=== PATIENT | female | born 1990 | race Caucasian/White ===

== ENCOUNTER 2020-10-06 10:01 | Outpatient (REF) | payer OTHER, SELFPAY ==
--- NOTE | 2020-10-11 16:08 | MHC.AU.P13 ---
Adult Audiological Evaluation Date of Visit: 10/06/20 Reason for Appointment: Long-standing history of mixed hearing loss. History of middle ear surgeries. Patient currently has a PE tube in her right ear. She arrives to determine if there has been a change in hearing. Previous Hearing Test Results: On 11/07/2018 [facility]- Right: Moderately-severe rising to normal and sloping to moderately-severe mixed hearing loss Left: Moderate rising to normal and sloping to moderately-severe mixed hearing loss Ear History: Recent Ear Drainage: Right Ear Ear Infections in Childhood: Both Ears Hearing Instrument History- Right Ear: News Department Intern: Oticon Model: Starr mini BTE Serial Number: [id number] Battery Size: 312 Dispensed By: [facility] Date of Fittin12/17/2014 Hearing Instrument History- Left Ear: News Department Intern: Oticon Model: Starr mini BTE Serial Number: [id number] Battery Size: 312 Dispensed By: [facility] Date of Fittin12/17/2014 Otoscopy: Right Ear: PE tube visualized and appears to be in-tact Left Ear: Scarring on tympanic membrane Tympanometry: Right Ear: Patent PE Tube Left Ear: Negative Middle Ear Pressure (Type C) Hearing Evaluation: Transducer(s) Used: Insert Earphones, Bone Conduction Method: Conventional Audiometry Stimuli Used: Pure Tones Right Ear: Description of Hearing: Moderately-severe rising to normal and sloping to moderately-severe mixed hearing loss Left Ear: Description of Hearing: Moderately-severe rising to normal and sloping to moderately-severe mixed hearing loss Speech Recognition Threshold (SRT): Method Used: Recorded Lists Stimuli Used: Spondee Words Right Ear: 20 dBHL Left Ear: 35 dBHL Word Discrimination: Method: Recorded Lists Word Lists Used: NU-6 Right Ear: 96% at 65 dBHL Left Ear: 92% at 70 dBHL Most Comfortable Level (MCL): Right Ear: 65 dBHL Left Ear: 70 dBHL Comparison: Compared to the most recent evaluation: Hearing is stable. Recommendations: Audiological re-evaluation in one year. Patient is interested in a new pair of hearing aids. Discussed her current needs, which include Bluetooth. She also uses an amplified stethoscope that she currently plugs into the aux port of her StreamerPro. Many of the new streamers do not have aux ports. I will do some research and call audiology at [facility], [facility], and [facility] to discuss which options may work for her. Patient plans to also do more research into the various models we discussed. A hearing aid follow-up was scheduled to select which hearing aids she would like to proceed with. Diagnosis: Primary Diagnosis: H90.6 Mixed Hearing Loss, Bilateral Services Performed: Services Performed: Comprehensive Audiological Evaluation (CPT 95328) Tympanometry (CPT 06358) Signature: Provider: Carmel Bennett, CCC-A
== END 2020-10-06 10:02 | disposition home or self-care (01) ==
LOC: HO.SH 10:01
PROVIDERS: PCP Internal Medicine; Referring Provider Internal Medicine; Visit Provider Internal Medicine
DX: H90.6 Mixed conductive and sensorineural hearing loss, bilateral (principal)
CPT/HCPCS: 92557; 92567

== ENCOUNTER 2020-10-20 15:03 | Outpatient (REF) | payer SELFPAY ==
--- NOTE | 2020-10-21 11:03 | MHC.AU.HAS ---
Date of Visit: 10/21/20 Hearing Aid Evaluation Historical Information: Description of Hearing: Moderately-severe rising to normal and sloping to moderately-severe mixed hearing loss, worse in the left ear. Current personal amplification information, if applicable:: Oticon [place] mini BTE, obtained 12/17/2014 Summary: Patient arrived to discuss new hearing aid options. Patient currently has an Oticon Streamer Pro 1.3, which she relies on. She uses it for understanding on the phone, as well as to plug her ThinkLabs stethoscope into for work. The streamer is now considered obsolete by Oticon, and cannot be repaired or replaced. The streamer has started to have intermittent issues, and she would like to consider a new pair of hearing aids with Bluetooth compatibility so she would not have to rely on a streamer as much. She would, however, still like to consider hearing aids that do have streamers with a 3.5 mm shala, in case it is needed down the line. Patient has an iPhone. Options were researched. Oticon has compatibility with iPhones; however, they do not have many options for streamers that still have the 3.5 mm shala. The EduMic has a 3.5 mm shala, but it is meant primarily for school remote microphone use. Phon[employer]'s Ze Select, Ze Pen, and Ze Clip-on Yoni have a 3.5 mm shala, but are a bit pricey. Phonak is compatible with iPhone or Android. Contacted Phonak to ask about ThinkLabs compatibility. They said there is a Bluetooth adapter that can help the hearing aids connect to the stethoscope without a streamer. They have been performing validation testing. They said they have not officially published the results, so they have not released any directions to set up the Bluetooth adapter; instead, they recommend calling Audiology to help walk you through setting it up at the fitting. Adelso is compatible with iPhone and Android. Their Table Microphone and Remote Microphone+ have 3.5 mm jacks. Patient was interested in the Table Microphone, as she felt it may also help in meetings. After considering all options, we will try a pair of Adelso Ch[place] AI 2400 BTEs [facility]. She will hold off on the Table Microphone for now, as she would like to see how the hearing aids work on their own, and with the Bluetooth adapter for her stethoscope. Impressions taken for new molds without incident. Hearing Aid Prescription: Based on the individual?s shared listening needs, communication environments, dexterity, desire for connectivity, and personal preferences, the following prescription for amplification has been made: Right ear: Cafe Cook: StreetInvestor Model: DocumentCloud 2400 Color: OptiSynxe Battery Size: 13 Type of Earmold/Tubing Size: Microsonic, Shell Left ear: Left ear prescription to be same as Right Hearing Aid above: Yes Action Taken/Action Needed: Earmold Impressions Taken Medical Clearance to be requested from PCP/ENT Patient would like to be scheduled for a hearing aid fitting as soon as the hearing aids arrive, using her current molds if the new molds are not in. The new molds could then be fit at the follow-up. Primary Diagnosis: H90.6 Mixed Hearing Loss, Bilateral Signature: Provider: Carmel Bennett, CCC-A
== END 2020-10-20 15:04 | disposition home or self-care (01) ==
LOC: HO.HAP 15:03
PROVIDERS: PCP Internal Medicine; Referring Provider Internal Medicine; Visit Provider Internal Medicine
DX: Z13.89 Encounter for screening for other disorder (principal)
CPT/HCPCS: 92700

== ENCOUNTER 2020-11-01 08:46 | Outpatient (REF) | payer SELFPAY ==
--- NOTE | 2020-11-01 10:18 | MHC.AU.P13 ---
Hearing Instrument Fitting- Adult- Binaural Date of Visit: 11/01/2020 Hearing Instruments Dispensed: Right Ear: Mold Swabber: Adelso Model: Oswaldo Edge AI 2400 BTE 13 Serial Number: [id number] Warranty: 01/19/2024 Service Plan: 01/19/2024 Battery Size: 13 Color: Champagne Left Ear: Mold Swabber: Oticon Model: Oswaldo Edge AI 2400 BTE 13 Serial Number: [id number] Warranty: 01/19/2024 Service Plan: 01/19/2024 Battery Size: 312 Summary of Fitting: Patient's current molds were placed on the hearing aids at patient request, as she wanted to start getting used to the new hearings aids before the new molds were ready. Feedback canceller run. Verifit performed and levels adjusted to better reach targets. Patient at first felt she heard a static sound- lowered gain around 2-4 kHz where her hearing is closer to normal. Frequency lowering was activated. Edge mode set as double tap. Patient reported that things sounded different than what she's used to with her previous Oticon hearing aids. In wearing them longer, she will determine if that difference is better or not. Hearing aids were paired to her phone. Patient had to leave for another appointment, so we did not get to explore the karen. Patient is an experienced hearing aid user, and knows the daily care and maintenance. Recommendations: Patient had to leave to get to another appointment. She will call to schedule her follow-up. Did not collect deposit yet, as we are unsure if patient will be keeping this pair. Diagnosis Code(s): Primary Diagnosis: H90.6 Mixed Hearing Loss, Bilateral Signature: Provider: Carmel Bennett, [facility]
== END 2020-11-01 08:47 | disposition home or self-care (01) ==
LOC: HO.HAP 08:46
PROVIDERS: Visit Provider Internal Medicine
DX: Z13.89 Encounter for screening for other disorder (principal)

== ENCOUNTER 2020-11-04 10:44 | Outpatient (REF) | payer SELFPAY ==
--- NOTE | 2020-11-04 15:07 | MHC.AU.P13 ---
Hearing Instrument Follow-Up- Binaural Date of Visit: 11/04/20 Right Ear: Lofter: Adelso Model: Oswaldo Edge AI 2400 BTE 13 Warranty: 01/19/2024 Dispensed By: [facility] Left Ear: Lofter: Adelso Model: Oswaldo Edge AI 2400 BTE 13 Warranty: 01/19/2024 Dispensed By: [facility] Follow-Up Summary: Patient arrived for hearing aid follow-up. She would like to return the Oswaldo and try a different model. She reports that they sound too different than what she is used to, and she is unable to adjust to them. Discussed other options. We will try a pair of Phonak Bolero M90-M in color P3. Recommendations: Patient will be contacted when the Phonak instruments have arrived. The Adelso instruments will be returned for credit. Diagnosis Code(s): Primary Diagnosis: H90.6 Mixed Hearing Loss, Bilateral Signature: Provider: Carmel Bennett, CCC-A
== END 2020-11-04 10:45 | disposition home or self-care (01) ==
LOC: HO.HAP 10:44
PROVIDERS: Visit Provider Internal Medicine
DX: Z13.89 Encounter for screening for other disorder (principal)

== ENCOUNTER 2020-11-29 08:15 | Outpatient (REF) | payer SELFPAY ==
--- NOTE | 2020-11-29 09:49 | MHC.AU.P13 ---
Hearing Instrument Fitting- Adult- Binaural Date of Visit: 11/29/20 Hearing Instruments Dispensed: Right Ear: Storage Specialist: Phonak Model: BioKier M90-M Serial Number: [id number] Warranty: 02/12/2024 Battery Size: 312 Color: [place] Type of Mold: Microsonic Shell Rucux-n-tjkt Clear Type of Wax Guard: Left Ear: Storage Specialist: Phonak Model: Telecom Transport Managementero M90-M Serial Number: [id number] Warranty: 02/12/2024 Battery Size: 312 Color: [place] Type of Mold: Microsonic Shell Oxkxf-j-jysm Clear Accessories/Assistive Technology: PartnerMic (Provided through Phonak promo) Serial #[id number] Warranty 02/12/2022 Summary of Fitting: New molds arrived. The new molds were coupled to the new Phonak hearing aids. Feedback manager servicing was run. Verifit performed and showed left ear was much too loud. Levels adjusted to better reach targets. Occlusion compensation set to medium. Patient noted that the sound quality of speech/conversation was good. She was concerned that when we were not talking, it seemed too quiet (i.e. could not hear environmental sounds); however, there was not much environmental noise at the time. She will see how this is at home. Hearing aids were paired to her phone. Cielo was downloaded and hearing aids paired to the cielo. Recommendations: A hearing instrument follow-up was scheduled. Diagnosis Code(s): Primary Diagnosis: H90.6 Mixed Hearing Loss, Bilateral Signature: Provider: Carmel Bennett, [facility]
== END 2020-11-29 08:16 | disposition home or self-care (01) ==
LOC: HO.HAP 08:15
PROVIDERS: Visit Provider Internal Medicine
DX: Z13.89 Encounter for screening for other disorder (principal)

== ENCOUNTER 2020-12-01 08:19 | Outpatient (REF) | payer SELFPAY ==
--- NOTE | 2020-12-01 16:13 | MHC.AU.P13 ---
Hearing Instrument Follow-Up- Binaural Date of Visit: 12/01/20 Right Ear: Route Inspector: Bahu Model: Hippo Manager Software M90-M Serial Number: [id number] Repair Warranty: 02/12/2024 Loss and Damage Warranty: 02/12/2024 Battery Size: 312 Color: [place] Type of Mold: Microsonic Shell Fheld-j-rxtp Clear Left Ear: Route Inspector: Phonak Model: Hippo Manager Software M90-M Serial Number: [id number] RepairWarranty: 02/12/2024 Loss and Damage Warranty: 02/12/2024 Battery Size: 312 Color: [place] Type of Mold: Microsonic Shell Jnadc-c-vney Clear Follow-Up Summary: Patient has been experimenting with the sound settings on the karen, and would like to make some changes in the programming. Low frequency gain was increased and high frequency gain decreased. Patient reported it sounded more balanced. She also requested a second program with omnidirectional livia. Patient brought her [employer] Stethoscope/Bluetooth adapter to the appointment. Called [employer] for directions to set it up, and was told that however we set the gain for the stethoscope is how all Bluetooth streaming will sound- including phone. [employer] recommends significantly increasing gain to the low frequencies and rolling off the high frequencies, which would not sound good for phone calls. I will get in touch with others at [employer] to best determine how to get the stethoscope working with the hearing aids. For now, we will keep the patient's previously scheduled follow-up in a couple weeks. I will update the patient with information as I get it. Diagnosis Code(s): Primary Diagnosis: H90.6 Mixed Hearing Loss, Bilateral Signature: Provider: Carmel Bennett, [facility]
== END 2020-12-01 08:20 | disposition home or self-care (01) ==
LOC: HO.HAP 08:19
PROVIDERS: Visit Provider Internal Medicine
DX: Z13.89 Encounter for screening for other disorder (principal)

== ENCOUNTER 2020-12-13 09:10 | Outpatient (REF) | payer SELFPAY | END 2020-12-13 09:11 | disposition home or self-care (01) | LOC: HO.HAP 09:10 | PROVIDERS: Visit Provider Internal Medicine | DX: Z13.89 Encounter for screening for other disorder (principal) ==

== ENCOUNTER 2021-01-07 15:19 | Outpatient (REF) | payer SELFPAY ==
--- NOTE | 2021-01-12 13:39 | MHC.AU.P13 ---
Hearing Instrument Follow-Up- Binaural Date of Visit: 01/07/21 Follow-Up Summary: Patient feels she wants to wait on getting a new pair of hearing aids until the technology is where she needs it to be. At the moment, there are no options that will allow her to use her amplified stethoscope wirelessly, while not also affecting how streaming from the phone or other Bluetooth devices will sound. [employer] had sent a demo ConnectClip. Patient did not have the stethoscope with her at this appointment. Patient will borrow the ConnectClip and try it at home with the demo OPN BTEs and the stethoscope. Fit remade ear molds. Patient reported that so far, they felt more comfortable than the previous ones. Discussed that if patient decides to not go forward with hearing aids, she will owe $170 for molds. Recommendations: Will check in with patient to see how demo is going. If she does not want to proceed with new hearing aids, she can return demo equipment and pay for the molds. If she wants to proceed, we can schedule an appointment to discuss options. Diagnosis Code(s): Primary Diagnosis: H90.6 Mixed Hearing Loss, Bilateral Signature: Provider: Carmel Bennett, CCC-A
== END 2021-01-07 15:20 | disposition home or self-care (01) ==
LOC: HO.HAP 15:19
PROVIDERS: Visit Provider Internal Medicine
DX: Z13.89 Encounter for screening for other disorder (principal)

== ENCOUNTER 2021-04-14 15:42 | Outpatient (REF) | payer SELFPAY | END 2021-04-14 15:43 | disposition home or self-care (01) | LOC: HO.HAP 15:42 | PROVIDERS: Visit Provider Internal Medicine | DX: Z13.89 Encounter for screening for other disorder (principal) ==

== ENCOUNTER 2021-04-27 15:59 | Outpatient (REF) | payer SELFPAY | END 2021-04-27 16:00 | disposition home or self-care (01) | LOC: HO.HAP 15:59 | PROVIDERS: Visit Provider Internal Medicine | DX: Z13.89 Encounter for screening for other disorder (principal) ==

== ENCOUNTER 2021-06-01 16:31 | Outpatient (REF) | payer SELFPAY ==
--- NOTE | 2021-06-01 16:45 | MHC.AU.HAS ---
Hearing Aid Evaluation Date of Visit: 06/01/21 Historical Information: Description of Hearing: Moderate mixed low-frequency hearing loss, rising to normal hearing in the mid-frequencies, and sloping to a moderate hearing loss at the high-frequencies. Current personal amplification information, if applicable: 2014 Oticon [place] miniBTE Summary: Mrs. Ambrocio has been demoing our set of Oticon More 1 miniRITE-R aids for several months and decided she should like to proceed with purchasing her own set. She would also like to get the ConnectClip. Hearing Aid Prescription: Based on the individual?s shared listening needs, communication environments, dexterity, desire for connectivity, and personal preferences, the following prescription for amplification has been made: Right ear: Elevator Operator Freight: Oticon Model: More 1 miniRITE-R Battery Size: 312 Color: [place] Brown Neonatal Specialist: Size 1 85 gain Type of Mold: Oticon VarioTherm canal mold Left ear: Left ear prescription to be same as Right Hearing Aid above: Yes Elevator Operator Freight: Oticon Model: More 1 miniRITE-R Battery Size: Rechargeable Color: [place] Brown Neonatal Specialist: Size 1 85 gain Type of Mold: Oticon VarioTherm canal mold Accessories/Assistive Technology Recommended: Connect Clip Plan of Care: Patient wishes to purchase hearing aids as prescribed Action Taken/Action Needed: Earmold Impressions Taken. Front office staff had already left, so could not take payment today. Patient was quoted $5900.00 for the hearing aids, $279.00 for the connect clip, and $170 for the earmolds she received several months ago and has yet to be billed for. Will all be billed at fitting since deposit could not be paid today. Primary Diagnosis: H90.6 Mixed Hearing Loss, Bilateral Signature: Provider: Carmel Perez, [facility]
== END 2021-06-01 16:32 | disposition home or self-care (01) ==
LOC: HO.HAP 16:31
PROVIDERS: Visit Provider Internal Medicine
DX: Z13.89 Encounter for screening for other disorder (principal)

== ENCOUNTER 2021-06-16 14:24 | Outpatient (REF) | payer SELFPAY | END 2021-06-16 14:25 | disposition home or self-care (01) | LOC: HO.HAP 14:24 | PROVIDERS: Visit Provider Internal Medicine | DX: Z46.1 Encounter for fitting and adjustment of hearing aid (principal); H90.6 Mixed conductive and sensorineural hearing loss, bilateral | CPT/HCPCS: 92591; V5261; V5267; V5299 ==

== ENCOUNTER 2021-06-29 11:28 | Outpatient (REF) | payer SELFPAY | END 2021-06-29 11:29 | disposition home or self-care (01) | LOC: HO.HAP 11:28 | PROVIDERS: Visit Provider Internal Medicine | DX: Z13.89 Encounter for screening for other disorder (principal) ==

== ENCOUNTER 2021-12-19 16:21 | Outpatient (REF) | payer SELFPAY | END 2021-12-19 16:22 | disposition home or self-care (01) | LOC: HO.HAP 16:21 | PROVIDERS: Visit Provider Internal Medicine | DX: Z46.1 Encounter for fitting and adjustment of hearing aid (principal); H90.3 Sensorineural hearing loss, bilateral | CPT/HCPCS: V5267 ==

== ENCOUNTER 2022-06-07 09:45 | Outpatient (REF) | payer SELFPAY ==
--- NOTE | 2022-06-07 10:34 | MHC.AU.HFU ---
Hearing Instrument Follow-Up- Binaural Date of Visit: 06/07/22 Right Ear: Patient Support Tech: Oticon Model: More 1 miniRITE-R Serial Number: [id number] Repair Warranty: 07/10/2024 Loss and Damage Warranty: 07/10/2024 Battery Size: Rechargeable Color: [place] Brown Industrial Aerial Installer: Size 1 85 gain Type of Mold: Oticon soft canal mold SN: [id number] Warranty: 09/25/2021 Type of Wax Guard: Prowax minifit Dispensed By: [facility] Date of Fittin06/16/21 Left Ear: Patient Support Tech: Oticon Model: More 1 miniRITE-R Serial Number: [id number] Repair Warranty: 07/10/2024 Loss and Damage Warranty: 07/10/2024 Service Plan: Battery Size: Rechargeable Color: [place] Brown Industrial Aerial Installer: Size 1 85 gain Type of Mold: Oticon soft canal mold SN: [id number] Warranty: 09/25/2021 Type of Wax Guard: Prowax minifit Dispensed By: [facility] Date of Fittin06/16/21 Follow-Up Summary: Patient arrived for hearing aid maintenance. She reports the hearing aids have been working very well. She has just noticed more wax building up inside the molds and would like them cleaned. Hearing aid maintenance performed. Molds and receivers cleaned. Debris removed from microphones. Wax guards replaced. Hearing aids are amplifying clearly after maintenance. Patient inquired about the new Oticon Smart Home Care And Home Health Aides Teacher she had seen online. She is interested, as she reports her in-laws have cats and when they visit she is worried about the cats getting at the exposed hearing aids in her current battery charger tester. She also likes that it has a built in dryer. Quoted patient $168. She would like to order one. Recommendations: Patient will be contacted when the Smart Home Care And Home Health Aides Teacher has arrived (no appointment with us necessary at pick-up, unless patient would like one). The $168 will be paid at pick-up. Diagnosis Code(s): Primary Diagnosis: H90.6 Mixed Hearing Loss, Bilateral Signature: Provider: Carmel Bennett, [facility]
== END 2022-06-07 09:46 | disposition home or self-care (01) ==
LOC: HO.HAP 09:45
PROVIDERS: Visit Provider Internal Medicine
DX: Z13.89 Encounter for screening for other disorder (principal)

== ENCOUNTER 2022-06-12 10:01 | Outpatient (REF) | payer SELFPAY | END 2022-06-12 10:02 | disposition home or self-care (01) | LOC: HO.HAP 10:01 | PROVIDERS: Visit Provider Internal Medicine | DX: Z46.1 Encounter for fitting and adjustment of hearing aid (principal) | CPT/HCPCS: V5267 ==

== ENCOUNTER 2022-09-13 16:00 | Outpatient (REF) | payer SELFPAY | END 2022-09-13 16:01 | disposition home or self-care (01) | LOC: HO.HAP 16:00 | PROVIDERS: Visit Provider Internal Medicine | DX: Z46.1 Encounter for fitting and adjustment of hearing aid (principal) | CPT/HCPCS: V5267 ==

== ENCOUNTER 2023-01-02 13:56 | Outpatient (REF) | payer SELFPAY ==
--- NOTE | 2023-01-02 14:32 | MHC.AU.HFU ---
Hearing Instrument Follow-Up- Binaural Date of Visit: 01/02/23 Right Ear: Oticon More 1 miniRITE-R, SN# [id number], [place] [employer] Repair Warranty: 07/10/2024 Loss and Damage Warranty: 07/10/2024 Battery Size: Rechargeable Account Receivable Clerk: Type of Mold: Oticon soft canal mold SN: [id number] Warranty: 09/25/2021 Type of Wax Guard: Prowax minifit Dispensed By: [facility] Date of Fittin06/16/21 Left Ear: Oticon More 1 miniRITE-R, SN# [id number], [place] [employer] Repair Warranty: 07/10/2024 Loss and Damage Warranty: 07/10/2024 Battery Size: Rechargeable Account Receivable Clerk: Type of Mold: Oticon soft canal mold SN: [id number] Warranty: 09/25/2021 Type of Wax Guard: Prowax minifit Dispensed By: [facility] Date of Fittin06/16/21 Follow-Up Summary: The patient is here for a hearing aid check. She continues to hear well with her hearing aids but states they can be intermittent. She is concerned there is wax or moisture build up on her hearing aids. Visual inspection reveals significant debris on the wax guards and ear molds. I replaced the wax guards and thoroughly cleaned/brushed the molds, receivers and hearing aids microphones. Listening check reveals clear sound bilaterally. The patient reported improved sound quality following the hearing aid cleaning. Otoscopy reveals clear, though moist ear canals. A PE tube is visualized in the patient's right tympanic membrane. She states she has had this PE tube for many years (since age 11 or so). She is followed by Dr. Pastor (ENT) and saw him 6 months ago for an ear cleaning and audiogram. She will try to find this updated audiogram and bring us a copy for our records. She is scheduled to see Dr. Pastor soon for another check. We spent time discussing hearing aid cleaning and maintenance, including use of a dry aid jar which she has. She will start using it more often. She will return in 6 months for another check. No charge, under warranty. Diagnosis Code(s): Primary Diagnosis: H90.6 Mixed Hearing Loss, Bilateral Signature: Provider: Carmel Monterroso, CCC-A
== END 2023-01-02 13:57 | disposition home or self-care (01) ==
LOC: HO.HAP 13:56
PROVIDERS: Visit Provider Internal Medicine
DX: Z13.89 Encounter for screening for other disorder (principal)

== ENCOUNTER 2023-03-09 15:11 | Outpatient (REF) | payer SELFPAY | END 2023-03-09 15:12 | disposition home or self-care (01) | LOC: HO.HAP 15:11 | PROVIDERS: Visit Provider Internal Medicine | DX: Z13.89 Encounter for screening for other disorder (principal) ==

== ENCOUNTER 2023-06-28 10:10 | Outpatient (REF) | payer SELFPAY | END 2023-06-28 10:11 | disposition home or self-care (01) | LOC: HO.HAP 10:10 | PROVIDERS: Visit Provider Internal Medicine | DX: Z13.89 Encounter for screening for other disorder (principal) ==

== ENCOUNTER 2023-11-21 15:55 | Outpatient (REF) | payer SELFPAY ==
--- NOTE | 2023-11-22 08:34 | MHC.AU.HA3 ---
Hearing Instrument Follow-Up- Binaural Date of Visit: 11/21/23 Right Ear: Make, Model, Color, Serial Number: Oticon More 1 miniRITE-R SN: [id number] Color: [place] [facility] Pharmacist Repair Warranty: 07/10/2024 Hospital Pharmacist Loss and Damage Warranty: 07/10/2024 Battery Size: Rechargeable Pharmacy Billing Adjudicator/Slim Tube: 85 Earmold/Dome/CShell/SlimTip:Oticon soft canal mold SN: [id number] Abundio: 09/25/2021 Type of Wax Guard: miniFit Dispensed By: [facility] Date of Fittin06/16/2021 Left Ear: Make, Model, Color, Serial Number: Oticon Sarah 1 miniRITE-R SN: [id number] Color: [place] [facility] Pharmacist Repair Warranty: 07/10/2024 Hospital Pharmacist Loss and Damage Warranty: 07/10/2024 Battery Size: Rechargeable Pharmacy Billing Adjudicator/Slim Tube: Earmold/Dome/CShell/SlimTip: Oticon soft canal mold SN: [id number] Abundio: 09/25/2021 Type of Wax Guard: Prowax minifit Dispensed By: [facility] Date of Fittin06/16/21 Follow-Up Summary: Chiara reported that she would like new ear molds as the vents are tearing. She prefers the same style and material. Impressions taken, bilaterally, without incident. [facility] to [facility]. Cleaned both hearing aids and ear molds. Replaced wax guards. Vacuumed microphones. A listening check demonstrated hearing aids are amplifying clearly. Quoted $130.00 for new ear molds due at pick out hand. Recommendations: Patient will be contacted when materials have arrived. Recommendations (Other): Chiara already had an appointment scheduled on 01/01/2024. If molds arrive before then, call [facility] to schedule a sooner appointment. Diagnosis Code(s): Primary Diagnosis: H90.6 Mixed Hearing Loss, Bilateral Signature: Provider: Sindhu Burch, [facility]
== END 2023-11-21 15:56 | disposition home or self-care (01) ==
LOC: HO.HAP 15:55
PROVIDERS: Visit Provider Internal Medicine
DX: Z13.89 Encounter for screening for other disorder (principal)

== ENCOUNTER 2023-12-20 16:01 | Outpatient (REF) | payer SELFPAY ==
--- NOTE | 2023-12-21 08:19 | MHC.AU.HA3 ---
Hearing Instrument Follow-Up- Binaural Date of Visit: 12/20/23 Right Ear: Make, Model, Color, Serial Number: Oticon More 1 miniRITE-R SN: [id number] Color: [place] [employer] Operator Repair Warranty: 07/10/2024 Hydroelectric Station Operator Loss and Damage Warranty: 07/10/2024 [facility] Service Plan: Battery Size: Rechargeable Data Review Specialist/Slim Tube: Earmold/Dome/CShell/SlimTip:Oticon [place] canal mold SN: [id number] Abundio: 03/19/2024 Type of Wax Guard: miniFit Dispensed By: [facility] Date of Fittin06/16/2021 Left Ear: Make, Model, Color, Serial Number: Oticon More 1 miniRITE-R SN: [id number] Color: [place] [employer] Operator Repair Warranty: 07/10/2024 Hydroelectric Station Operator Loss and Damage Warranty: 07/10/2024 [facility] Service Plan: Battery Size: Rechargeable Data Review Specialist/Slim Tube: Earmold/Dome/CShell/SlimTip: Oticon [place] canal mold SN: [id number] Abundio: 03/19/2024 Type of Wax Guard: Prowax minifit Dispensed By: [facility] Date of Fittin06/16/21 Follow-Up Summary: Dispensed molds, cleaned and checked aids, listening check positive. Chiara was somewhat thrown off as these molds are much smaller and of a different material than her old molds, thought she was getting the same thing. These are [place], old ones were soft silicone. She agreed to give them a try, advised of remake period. Also noted left cuts out intermittently. Data Review Specialist replacement recommended, however, we are out of . Will order, under warranty. She already has an appointment for GOMEZ maintenance this month that was previously scheduled. Will keep that to come in for wire swap. Recommendations: Recommendations (Other): Return as scheduled. Diagnosis Code(s): Primary Diagnosis: H90.6 Mixed Hearing Loss, Bilateral Signature: Provider: Sindhu Pierson, [facility]
== END 2023-12-20 16:02 | disposition home or self-care (01) ==
LOC: HO.HAP 16:01
PROVIDERS: Visit Provider Internal Medicine
DX: Z46.1 Encounter for fitting and adjustment of hearing aid (principal); H90.6 Mixed conductive and sensorineural hearing loss, bilateral
CPT/HCPCS: V5264

== ENCOUNTER 2024-01-03 14:21 | Outpatient (REF) | payer SELFPAY ==
--- NOTE | 2024-01-03 15:29 | MHC.AU.HA3 ---
Hearing Instrument Follow-Up- Binaural Date of Visit: 01/03/24 Right Ear: Make, Model, Color, Serial Number: Oticon More 1 miniRITE-R SN: [id number] Color: [place] Brown Thiokol Operator Repair Warranty: 07/10/2024 Thiokol Operator Loss and Damage Warranty: 07/10/2024 [facility] Service Plan: Battery Size: Rechargeable Co Chairman/Slim Tube: 85 Earmold/Dome/CShell/SlimTip:Oticon [place] canal mold SN: [id number] Abundio: 03/19/2024 Type of Wax Guard: miniFit Dispensed By: [facility] Date of Fittin06/16/2021 Left Ear: Make, Model, Color, Serial Number: Oticon More 1 miniRITE-R SN: [id number] Color: [place] Brown Thiokol Operator Repair Warranty: 07/10/2024 Thiokol Operator Loss and Damage Warranty: 07/10/2024 [facility] Service Plan: Battery Size: Rechargeable Co Chairman/Slim Tube: Earmold/Dome/CShell/SlimTip: Oticon [place] canal mold SN: [id number] Abundio: 03/19/2024 Type of Wax Guard: Prowax minifit Dispensed By: [facility] Date of Fittin06/16/21 Follow-Up Summary: Here to swap out receivers, we didn't have her size in stock at her last visit and she notes the hearing aids have been cutting in and out. Checked in on the new molds. She reports that is getting used to them, but prefers the fit of her old molds. Ordering remakes under warranty to match the material and style of her old earmolds. Recommendations: Recommendations: Patient will be contacted when materials have arrived. Diagnosis Code(s): Primary Diagnosis: H90.3 Bilateral Sensorineural Hearing Loss Signature: Provider: iSndhu Pierson, [facility]
== END 2024-01-03 14:22 | disposition home or self-care (01) ==
LOC: HO.HAP 14:21
PROVIDERS: Visit Provider Internal Medicine
DX: Z13.89 Encounter for screening for other disorder (principal)

== ENCOUNTER 2024-01-22 15:09 | Outpatient (REF) | payer SELFPAY ==
--- NOTE | 2024-01-22 15:40 | MHC.AU.HA3 ---
Hearing Instrument Follow-Up- Binaural Date of Visit: 01/22/24 Right Ear: Make, Model, Color, Serial Number: Oticon More 1 miniRITE-R SN: [id number] Color: [place] Brown Steam Shovel Oiler Repair Warranty: 07/10/2024 Steam Shovel Oiler Loss and Damage Warranty: 07/10/2024 [facility] Service Plan: Battery Size: Rechargeable Psychiatry Physician/Slim Tube: Earmold/Dome/CShell/SlimTip:Oticon RITE mold soft Minifit transparent S# [id number] warranty 04/27/2024 Type of Wax Guard: miniFit Dispensed By: [facility] Date of Fittin06/16/2021 Left Ear: Make, Model, Color, Serial Number: Oticon More 1 miniRITE-R SN: [id number] Color: [place] Brown Steam Shovel Oiler Repair Warranty: 07/10/2024 Steam Shovel Oiler Loss and Damage Warranty: 07/10/2024 [facility] Service Plan: Battery Size: Rechargeable Psychiatry Physician/Slim Tube: Earmold/Dome/CShell/SlimTip: Oticon RITE mold soft minifit transparent S#[id number] warranty 04/27/2024 Type of Wax Guard: Prowax minifit Dispensed By: [facility] Date of Fittin06/16/21 Follow-Up Summary: Dispensed remake earmolds in soft silicone material. Much better fit reported. Follow up as needed. Recommendations: Recommendations: Hearing instrument follow-up or maintenance as needed. Diagnosis Code(s): Primary Diagnosis: H90.6 Mixed Hearing Loss, Bilateral Signature: Provider: Sindhu Pierson, [facility]
== END 2024-01-22 15:10 | disposition home or self-care (01) ==
LOC: HO.HAP 15:09
PROVIDERS: Visit Provider Internal Medicine
DX: Z13.89 Encounter for screening for other disorder (principal)

== ENCOUNTER 2024-01-24 15:55 | Outpatient (REF) | payer SELFPAY ==
--- NOTE | 2024-01-24 16:22 | MHC.AU.HA3 ---
Hearing Instrument Follow-Up- Binaural Date of Visit: 01/24/24 Right Ear: Make, Model, Color, Serial Number: Oticon More 1 miniRITE-R SN: [id number] Color: [place] Brown Chemical Cell Changer Repair Warranty: 07/10/2024 Chemical Cell Changer Loss and Damage Warranty: 07/10/2024 [facility] Service Plan: Battery Size: Rechargeable Nurse Navigator/Slim Tube: Earmold/Dome/CShell/SlimTip:Oticon RITE mold soft Minifit transparent S# [id number] warranty 04/27/2024 Type of Wax Guard: miniFit Dispensed By: [facility] Date of Fittin06/16/2021 Left Ear: Make, Model, Color, Serial Number: Oticon More 1 miniRITE-R SN: [id number] Color: [place] Brown Chemical Cell Changer Repair Warranty: 07/10/2024 Chemical Cell Changer Loss and Damage Warranty: 07/10/2024 [facility] Service Plan: Battery Size: Rechargeable Nurse Navigator/Slim Tube: Earmold/Dome/CShell/SlimTip: Oticon RITE mold soft minifit transparent S#[id number] warranty 04/27/2024 Type of Wax Guard: Prowax minifit Dispensed By: [facility] Date of Fittin06/16/21 Follow-Up Summary: Reports left aid not amplifying, tried changing wax guard last night, thought there might be some wax behind the wax guard. Cleaned and checked, vacuumed curbing stonecutter, still not amplifying. Put on a new curbing stonecutter, listening check positive. Cleaned and checked right aid as well, listening check positive. Recommendations: Recommendations: Hearing instrument follow-up or maintenance as needed. Diagnosis Code(s): Primary Diagnosis: H90.6 Mixed Hearing Loss, Bilateral Signature: Provider: Sindhu Pierson, [facility]
== END 2024-01-24 15:56 | disposition home or self-care (01) ==
LOC: HO.HAP 15:55
PROVIDERS: Visit Provider Internal Medicine
DX: Z13.89 Encounter for screening for other disorder (principal)

== ENCOUNTER 2024-08-27 15:49 | Outpatient (REF) | payer SELFPAY ==
--- NOTE | 2024-08-27 16:45 | MHC.AU.HA3 ---
Hearing Instrument Follow-Up- Binaural Date of Visit: 08/27/24 Right Ear: Make, Model, Color, Serial Number: Oticon More 1 miniRITE-R SN: [id number] Color: [place] Brown Sub Acute Care Nurse Repair Warranty: 07/10/2024 Sub Acute Care Nurse Loss and Damage Warranty: 07/10/2024 [facility] Service Plan: 07/10/24 Battery Size: Rechargeable Container Finisher/Slim Tube: Earmold/Dome/CShell/SlimTip:Oticon RITE mold soft Minifit transparent S# [id number] warranty 04/27/2024 Type of Wax Guard: miniFit Dispensed By: [facility] Date of Fittin06/16/2021 Left Ear: Make, Model, Color, Serial Number: Oticon More 1 miniRITE-R SN: [id number] Color: [place] Brown Sub Acute Care Nurse Repair Warranty: 07/10/2024 Sub Acute Care Nurse Loss and Damage Warranty: 07/10/2024 [facility] Service Plan: 07/10/24 Battery Size: Rechargeable Container Finisher/Slim Tube: Earmold/Dome/CShell/SlimTip: Oticon RITE mold soft minifit transparent S#[id number] warranty 04/27/2024 Type of Wax Guard: Prowax minifit Dispensed By: [facility] Date of Fittin06/16/21 Follow-Up Summary: Chiara reports her left aid has sounded distorted recently and the right aid sounds weak, notes history of moisture problems, here for maintenance. Cleaned aids and earmolds. Noted debris in microphones. Vacuumed mics and machine stuffer connection point, replaced wax guards, ran through dehumidifier. Listening check positive right and left. Improvement reported by client. Advised that aids are out of warranty and service plan has ended, discussed charges going forward. Recommendations: Recommendations: Hearing instrument follow-up or maintenance as needed. Diagnosis Code(s): Primary Diagnosis: H90.6 Mixed Hearing Loss, Bilateral Signature: Provider: Sindhu Pierson, CCC-A
== END 2024-08-27 15:50 | disposition home or self-care (01) ==
LOC: HO.HAP 15:49
PROVIDERS: Visit Provider Internal Medicine
DX: Z46.1 Encounter for fitting and adjustment of hearing aid (principal); H90.6 Mixed conductive and sensorineural hearing loss, bilateral
CPT/HCPCS: 92593

== ENCOUNTER 2025-03-11 15:46 | Outpatient (REF) | payer SELFPAY ==
--- OUTSIDE RECORDS SUMMARY | 2025-03-11 16:34 | XMS_ITS | Data Portability ---
Author Organization [place] - [facility], Allergy Address [address] [address] Care Team Providers Care Plaster Caster Name Role Phone OVI DOYLE Primary Care Provider Assessment Encounter Date Assessment Date Assessment LastModified by Organization Details LastModified Time 12/04/2024 12/04/2024 The right ear looks good today, with no signs of persistent myringitis. Tube is in good position and patent. The left tympanic membrane retraction appears unchanged in comparison to prior photographs. Last audiogram was done in June 2022, so we elected to proceed with audiometric testing today. This showed bilateral mixed hearing loss, similar to her last audiogram with no major changes. Patient asked about switching over her hearing aid maintenance to our office, and we discussed our policy for that. We did discuss that if she needs new hearing aids in the future she might choose to have it done through our office so she can have all of her otologic and audiologic care under 1 roof. This is very appealing to her. Follow-up with me in six months for next tube check and cleaning. [email or web address] Not available 12/04/2024 16:12:35 01/29/2025 01/29/2025 34yo female presents for evaluation of bilateral otalgia and otorrhea. Otologic exam demonstrates bilateral external auditory canals with white fungal spores and debris. Right PE tube adequately placed and patent. TMs are intact with well-aerated middle ear spaces. Recommend topical Clotrimazole three times daily for 14 days. She will obtain this over the counter. Reviewed drop administration and water precautions. Patient will return for revaluation in 3 weeks to assess for infection resolution. Will offer audiometric testing once infection resolves if hearing loss persists. Patient agrees with plan. [email or web address] Not available 01/29/2025 17:16:48 02/04/2025 02/04/2025 34-year-old female with amplification and right myringotomy tube presents for reevaluation of bilateral otitis externa. Patient developed otalgia bilaterally since starting topical clotrimazole a couple days ago. She trialed topical Ciprodex and oral Augmentin, cefdinir, and doxycycline through an outside practice prior. We obtained cultures of bilateral ear canals today. Placed topical Otomax in external auditory canals. Patient aware to use dry ear precautions and avoid wearing her hearing aids for at least 1 week. Patient will return in 7 days for reevaluation. [email or web address] Not available 02/04/2025 11:54:48 02/13/2025 02/13/2025 34-year-old female with amplification and right myringotomy tube presents for reevaluation of bilateral otitis externa. Culture of external auditory canals was negative for bacteria or fungus, although culture was collected after patient started clotrimazole. Left-sided ear pain and pressure persists. Left external auditory canal with purulent otorrhea, and suspicious for left TM perforation vs retraction. Right TM with myringotomy tube, normal to inspection. Repeat Otomax placed into left EAC. Follow up in 2 weeks. [email or web address] Not available 02/13/2025 17:56:20 02/27/2025 02/27/2025 34-year-old female with amplification and right myringotomy tube presents for reevaluation of left otitis externa. Patient reports otalgia and otorrhea resolved with Otomax. TMs are intact and middle ear spaces appear well-aerated. Right TM is generally thickened and scarred with T-tube adequately placed. Left TM is scarred with cartilage graft within the tympanic membrane. Patient is traveling to [place], so I will send watch and wait topical Ciprodex prescription due to recurrent nature of ear infections. Patient will return for routine ear check with Dr. Cam in 3 months. [email or web address] Not available 02/27/2025 15:47:03 Plan of Treatment Reminders Order Date Submit Date Provider Last Modified By Organization Details Last Modified Time Details Appointments [place] [id number] 2024 01:40P Sandra CAM MD Not available Not available Not available Lab fungus, culture, unspecif ied specimen 2024 025 LUANNE [facility] (Centralized Electronic Ordering - All Locations), Patient Can Go To The Location Of Their Choice, 03/05/2025 07:41:34 culture, bacteria l 2024 025 [email or web address] [facility] (Centralized Electronic Ordering - All Locations), Patient Can Go To The Location Of Their Choice, 02/11/2025 10:14:16 fungus, culture, unspecif ied specimen 2024 025 [email or web address] [facility] (Centralized Electronic Ordering - All Locations), Patient Can Go To The Location Of Their Choice, 02/11/2025 10:14:17 culture, bacteria l 2024 025 LUANNE [facility] (Centralized Electronic Ordering - All Locations), Patient Can Go To The Location Of Their Choice, 03/05/2025 07:41:33 Referral None recorded . Procedures None recorded . Surgeries None recorded . Imaging None recorded . Medication Orders Ciprodex 0.3 %-0.1 % ear drops,wyman spension 2024 025 [facility], [address] [place] [address], [place], [address], 02/27/2025 12:00:29 Patient TargetsNo targets recorded. Patient InstructionsNo instructions recorded. Reason for Referral None Reported. Results Created Date Observation Date Name Description Value Unit Range Abnormal Flag Note LastModifiedBy Organization Detail LastModifiedTime 02/05/2002/07/2025 ANAER OBIC AND AEROB IC CULTU RE aerobic culture Final report Not Available [facility] ([facility]) [address] [facility], [place], [address], 03/05/2025 07:41:33 02/05/2002/07/2025 ANAER OBIC AND AEROB IC CULTU RE result 1 COMMEN T No growt h in 36 - 48 hours . Not Available [facility] ([facility]) [address] [facility], [place], [address], 03/05/2025 07:41:33 02/05/20 25 02/08/2025 ANAER OBIC AND AEROB IC CULTU RE anaerobic culture Final report Not Available [facility] ([facility]) [address] [facility], [place], [address], 03/05/2025 07:41:33 02/05/20 25 02/08/2025 ANAER OBIC AND AEROB IC CULTU RE result 1 COMMEN T No anaer obic growt h in 72 hours . Not Available [facility] ([facility]) [address] [facility], [place], [address], 03/05/2025 07:41:33 02/05/20 25 02/05/2025 FUNGU S CULTU RE WITH STAIN fungus stain Final report Not Available [facility] ([facility]) [address] [facility], [place], [address], 03/05/2025 07:41:34 02/05/20 25 02/05/2025 FUNGU S CULTU RE WITH STAIN result 1 COMMEN T MESHA/C alcof luor prepa ratio n: no fungu s obser julio césar. Not Available [facility] ([facility]) [address] [facility], [place], [address], 03/05/2025 07:41:34 02/05/20 25 03/05/2025 FUNGU S CULTU RE WITH STAIN fungus (mycology) culture Final report Not Available [facility] ([facility]) [address] [place], [address], 03/05/2025 07:41:34 02/05/20 25 03/05/2025 FUNGU S CULTU RE WITH STAIN result 1 COMMEN T No yeast or mold isola gunner after 4 weeks . Not Available [facility] ([facility]) [address] [place], [address], 03/05/2025 07:41:34 02/05/20 25 02/04/2025 ONE SPECI MEN IDENT IFIER one specimen identifier Commen t The speci men recei julio césar inclu ded only one patie nt ident ifier on the prima ry colle ction conta iner. Our labor atory accre alpeshtin g agenc y state s All prima ry speci men conta iners must be label ed with 2 ident ifier s at the time of colle ction . Not Available [facility] ([facility]) [address] [place], [address], 03/05/2025 07:41:34 02/05/20 25 02/06/2025 FUNGU S CULTU RE WITH STAIN fungus stain Final report Not Available [facility] ([facility]) [address] [place], [address], 03/06/2025 09:16:42 02/05/2002/06/2025 FUNGU S CULTU RE WITH STAIN result 1 COMMEN T MESHA/C alcof luor prepa ratio n: no fungu s obser julio césar. Not Available [facility] ([facility]) [address] [place], [address], 03/06/2025 09:16:42 02/05/20 25 03/06/2025 FUNGU S CULTU RE WITH STAIN fungus (mycology) culture Final report Not Available [facility] ([facility]) [address] [place], [address], 03/06/2025 09:16:42 02/05/2003/06/2025 FUNGU S CULTU RE WITH STAIN result 1 COMMEN T No yeast or mold isola gunner after 4 weeks . Not Available [facility] ([facility]) [address] [place], [address], 03/06/2025 09:16:42 02/05/20 25 02/07/2025 ANAER OBIC AND AEROB IC CULTU RE aerobic culture Final report Not Available [facility] ([facility]) [address] [facility], [address], 03/06/2025 09:16:43 02/05/2002/07/2025 ANAER OBIC AND AEROB IC CULTU RE result 1 COMMEN T No growt h in 36 - 48 hours . Not Available [facility] ([facility]) [address] [facility], [place], [address], 03/06/2025 09:16:43 02/05/2002/08/2025 ANAER OBIC AND AEROB IC CULTU RE anaerobic culture Final report Not Available [facility] ([facility]) [address] [facility], [place], [address], 03/06/2025 09:16:43 02/05/2002/08/2025 ANAER OBIC AND AEROB IC CULTU RE result 1 COMMEN T No anaer obic growt h in 72 hours . Not Available [facility] ([facility]) [address] [facility], [place], [address], 03/06/2025 09:16:43 02/05/2002/05/2025 ONE SPECI MEN IDENT IFIER one specimen identifier Commen t The speci men recei julio césar inclu ded only one patie nt ident ifier on the prima ry colle ction conta iner. Our labor atory accre ditin g agenc y state s All prima ry speci men conta iners must be label ed with 2 ident ifier s at the time of colle ction . Not Available [facility] ([facility]) [address] [facility], [place], [address], 03/06/2025 09:16:43 12/05/19 audio gram No observ ation record ed. BARCODE Not Available 2024 10:16:35 Result Notes None recorded. Problems Name Problem SNOMED Code Status Onset Date Resolution Date Notes Provider Name and Address Organization Details Recorded Time Pain of left temporom andibula r joint 34336021329 337791 Active 2017 Arthralg ia of left temporom andibula r joint; Note: Date Diagnose d: 11/07/20 18 3:39 PM (M26.622 ) Not Available [facility] 4 02:52:06 Mixed conducti ve and sensorin eural hearing loss, bilatera l 246904071 Active 2015 Mixed hearing loss, bilatera l; Note: Date Diagnose d: 10/05/20 14 10:29 AM (389.22) ; Start Date : 10/05/20 14 Mixed conducti ve and sensorin eural hearing loss, bilatera l; Note: Date Diagnose d: 6 9:08 AM (H90.6) [mapped from ICD9 code: 389.22] Not Available [facility] 4 02:52:08 Adhesive middle ear disease 1239910 Active 2022 Adhesive left middle ear disease; Note: Date Diagnose d: 3 10:16 AM (H74.12) Not Available [facility] 4 02:52:09 Impacted cerumen of bilatera l ears 65627852330 59715 Active 2017 Impacted cerumen, bilatera l; Note: Date Diagnose d: 11/07/20 18 3:06 PM (H61.23) Not Available [facility] 4 02:52:09 Mycosis 4505075 Completed 201506/13/2024 Other specifie d mycoses; Note: Date Diagnose d: 11/03/20 16 9:38 AM (B48.8) Not Available [facility] 4 02:52:09 Bilatera l disorder of Eustachi an tubes 85252994809 56143 Active 2015 Other specifie d disorder s of Eustachi an tube, bilatera l; Note: Date Diagnose d: 6 9:08 AM (H69.83) [mapped from ICD9 code: 381.81] Not Available [facility] 4 02:52:11 Perforat ion of left tympanic membrane 47588339057 64327 Completed 201506/13/2024 Unspecif ied perforat ion of tympanic membrane , left ear; Note: Date Diagnose d: 6 9:08 AM (H72.92) [mapped from ICD9 code: 384.20] Not Available [facility] 4 02:52:09 Candidal otitis externa 84083138 Completed 201706/13/2024 Candidal otitis externa; Location : left Not e: Date Diagnose d: 8 2:08 PM (B37.84) Candid al otitis externa; Location : left Not e: Date Diagnose d: 09/26/20 16 1:29 PM (B37.84) ; Start Date : 09/26/20 16 MISHA LAWLER PA-C [address] [facility],[place] [address], [place], [address] , [facility] - [facility] 5 16:11:08 Otorrhea of left ear 31354800148 97963 Completed 201506/13/2024 Otorrhea , left ear; Note: Date Diagnose d: 6 9:08 AM (H92.12) [mapped from ICD9 code: 388.60] MISHA LAWLER PA-C [address] [facility],[place] [address], [place], [address] , [facility] - [facility] 5 14:52:07 Pain of right temporom andibula r joint 40246660061 689479 Active 2022 Arthralg ia of right temporom andibula r joint; Note: Date Diagnose d: 3 10:27 AM (M26.621 ) Not Available [facility] 4 02:52:08 Acute myringit is of right ear 87864093593 97276 Active 2020 Acute myringit is, right ear; Note: Date Diagnose d: 1 2:14 PM (H73.001 ) Not Available [facility] 4 02:52:07 Otorrhea of right ear 67064656752 45856 Active 2021 Otorrhea , right ear; Note: Date Diagnose d: 2 3:43 PM (H92.11) Otorrh ea, right ear; Note: Date Diagnose d: 11/03/20 16 9:38 AM (H92.11) ; Start Date : 11/03/20 16 Not Available [facility] 4 02:52:07 Acute myringit is 184252 Active 2014 Acute myringit is, unspecif ied; Note: Date Diagnose d: 5 9:13 AM (384.00) Not Available [facility] 4 02:52:07 Perforat ion of tympanic membrane 03560191 Active 2013 Perforat ion of tympanic membrane , unspecif ied; Note: Date Diagnose d: 10/05/20 14 10:26 AM (384.20) Not Available [facility] 4 02:52:08 Dysfunct ion of eustachi an tube 44349786 Active 2013 Eustachi an tube dysfunct ion; Note: Date Diagnose d: 10/05/20 14 10:26 AM (381.81) Not Available [facility] 4 02:52:10 Otorrhea 64555256 Active 2014 Otorrhea ; Note: Date Diagnose d: 5 9:13 AM (388.60) Not Available [facility] 4 02:52:10 Sensorin eural hearing loss in right ear 10388564799 100 Active 2024 Luz michael [place] - [facility] 5 16:40:36 Mixed conducti ve and 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 45004703194 107 Active 2024 Luz michael [place] - [facility] 5 16:42:59 Mixed conducti ve and 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 27283480287 107 Active 2024 DEVAUGHN CAM MD [address] [place] [address], [facility] [place], [address] , [place] - [facility] 5 16:43:24 Chronic mycotic otitis externa 363665693 Active 2024 MISHA LAWLER PA-C [address] [place] [address], [place], [address] , [place] - [facility] 5 16:11:08 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 2024 MISHA LAWLER PA-C [address] [facility] [place],[address], [place], [address] , [place] - [facility] 5 16:11:08 Candidal otitis externa 65999508 Active 2024 Candidal otitis externa; Location : left Not e: Date Diagnose d: 8 2:08 PM (B37.84) Candid al otitis externa; Location : left Not e: Date Diagnose d: 09/26/20 16 1:29 PM (B37.84) ; Start Date : 09/26/20 16 MISHA LAWLER PA-C [address] [facility] [address], [facility] [place], [address] , [place] - [facility] 5 16:11:08 Otorrhea of left ear 42354978807 08757 Active 2024 Otorrhea , left ear; Note: Date Diagnose d: 6 9:08 AM (H92.12) [mapped from ICD9 code: 388.60] MISHA LAWLER PA-C [address] [facility],[place] [address], [place], [address] , [place] - [facility] 14:52:07 Problem Notes None recorded. Procedures Surgical History Date Name Laterality Status Provider Name and Address Organization Details Recorded Time 12/04/19 25 Comp Audio with Tymps (70120 & 03126) completed Luz Kirk [place] - [facility] 12/04/2024 16:39:48 Myringotomy Tube Placement completed Marii Medina [place] - [facility] 05/29/2024 13:48:40 tonsillectomy and adenoidectomy completed Marii Medina [place] - [facility] 05/29/2024 13:48:55 extraction of wisdom tooth completed Marii Medina [place] - [facility] 05/29/2024 13:49:02 Imaging Results Imaging Date Name Status LastModified by [facility] Details LastModified Time 12/05/2024 audiogram completed BARCODE Information no t available 12/05/2024 10:16:35 Procedure Notes None recorded. Medical Equipment None Reported. Allergies Allergen ID Allergen Name Allergen Category Reaction Reaction Severity Criticality Documentation Date Start Date Code Code System Note Provider Name and Address Organization Details Recorded Time 10600319 azithromy torres medicatio n other Not available Not available 03/25/2024 64420 RxNorm React ion: unkno wn, unspe cifie d;; Not Available [facility] 01:10:35 Medications Name Sig Start Date Stop Date Status Note LastModified by Organization Details LastModified Time amoxicill in 500 mg capsule TAKE 1 CAPSULE BY MOUTH TWICE DAILY 05/29 completed Not Available Not Available Not Available cefpodoxi me 200 mg tablet TAKE 1 TABLET BY MOUTH TWICE DAILY FOR 10 DAYS 05/29 completed Not Available Not Available Not Available ofloxacin 0.3 % eye drops INSTILL 1 DROP INTO AFFECTED EYE(S) EVERY 4 HOURS FOR 2 DAYS THEN 1 DROP INTO AFFECTED EYE(S) EVERY 6 HOURS FOR 5 DAYS 05/29 completed Not Available Not Available Not Available famotidin e 40 mg tablet TAKE 1 TABLET BY MOUTH ONCE DAILY AT BEDTIME 05/29 completed Not Available Not Available Not Available aspirin 81 mg tablet,de layed release 2013 active Medicati on ID: [id number] Br and Name: aspirin Send Method: E-Prescr ibed Sub s Allowed: subs OK Medic ationGen ericName : aspirin Not Available Not Available Not Available benzonata te 100 mg capsule SWALLOW WHOLE 1 CAPSULE BY MOUTH 3 TIMES A DAY NEEDED *DO NOT BREAK/CH EW/DISSO LVE/CUT OR CRUSH* 01/29 completed Not Available Not Available Not Available omeprazol e ER 20 mg capsule,e xtended release 1 capsule every 12 hours by oral route. 2022 active Not Available Not Available Not Avai lable oseltamiv ir 75 mg capsule TAKE 1 CAPSULE BY MOUTH TWICE A DAY FOR 5 DAYS 01/29 completed Not Available Not Available Not Available clotrimaz ole 1 % topical solution 05/29 completed Medicati on ID: [id number] D uration Value: 14 Prescri bed By Name: Juve Suazo nd Name: bell Alegre d Method: E-Prescr ibed Sub s Allowed: subs OK Speci al Instruct ion: 4 drops to affected ear three times a day Medi cationGe nericNam e: clotrima zole Med ication ID: [id number] D uration Value: 14 Prescri bed By Name: Juve Suazo nd Name: bell Alegre d Method: E-Prescr ibed Sub s Allowed: subs OK Speci al Instruct ion: 4 drops to affected ear three times a day Medi cationGe nericNam e: clotrima zole Not Available Not Available Not Available omeprazol e 20 mg capsule,d elayed release TAKE 1 CAPSULE BY MOUTH TWICE DAILY active Not Available Not Available No t Available albuterol sulfate HFA 90 mcg/actua tion aerosol inhaler INHALE 2 PUFFS BY MOUTH EVERY 6 HOURS NEEDED FOR WHEEZING FOR UP TO 30 DAYS. 01/15 completed Not Available Not Available Not Available cefdinir 300 mg capsule TAKE 1 CAPSULE (300 MG TOTAL) BY MOUTH TWO TIMES A DAY FOR 7 DAYS. 01/29 completed Not Available Not Available Not Available doxycycli ne hyclate 100 mg tablet TAKE 1 TABLET (100 MG TOTAL) BY MOUTH TWICE A DAY FOR 5 DAYS NOT FOR PREGNANC Y OR LACTATIO N 01/29 completed Not Available Not Available Not Available amoxicill in 875 mg-potass ium clavulana te 125 mg tablet TAKE 1 TABLET BY MOUTH TWICE A DAY FOR 10 DAYS 01/29 completed Not Available Not Available Not Available TobraDex 0.3 %-0.1 % eye drops,angela pension 05/29 completed Medicati on ID: [id number] D uration Value: 10 Brand Name: TobraDex Send Method: E-Prescr ibed Sub s Allowed: subs OK Speci al Instruct ion: Instill 4 drops in right ear BID for 14 days Med icationG enericNa me: TobraDex Medicat ion ID: [id number] D uration Value: 10 Brand Name: TobraDex Send Method: E-Prescr ibed Sub s Allowed: subs OK Speci al Instruct ion: Instill 4 drops in right ear BID for 14 days Med icationG enericNa me: TobraDex Not Available Not Available Not Available Ciprodex 0.3 %-0.1 % ear drops,angela pension Instill 4 drop into both ears twice a day as directed 2024 active Not Available Not Available Not Avai lable Zyrtec 10 mg capsule 2013 active Medicati on ID: [id number] Br and Name: Zyrtec S end Method: E-Prescr ibed Sub s Allowed: subs OK Medic ationGen ericName : Zyrtec Not Available Not Available Not Available Vitals Date Recorded Body height Body mass index (BMI) Body weight Provider Name and Address Organization Details Last Updated DateTime 01/29/2025 152.4 cm 33.8 kg/m2 97619.48 g Juany Mcbride [place] - [facility] 01/29/2025 15:57:35 Date Recorded Body height Provider Name an d Address Organization Details Last Updated DateTime 02/13/2025 152.4 cm JAMES NATHALY [place] - [facility] 02/13/2025 12:59:38 Date Recorded Body height Body mass index (BMI) Body weight Provider Name and Address Organization Details Last Updated DateTime 02/27/2025 152.4 cm 34.2 kg/m2 05598.66 g Juany Mcbride [place] - [facility] 02/27/2025 11:38:42 Social History None recorded. Functional Status None recorded. Mental Status None recorded. Family History Nothing Reported. Medical History Condition Response Allergies/Hayfever Y Heart Problems N Anxiety N Tonsil Infections Y Emphysema N Migraines N Thyroid Problems N Glaucoma N Depression N COPD N Developmental Delay N Nasal or Sinus Problems Y Anemia N Immune System Disorder N Anesthesia Complications N Heart Attack (IN) N Other Skin Condition N Diabetes N Rhinitis Y Bleeding Disorder N Food Allergy N Arthritis N Hearing Loss Y Hyperlipidemia N Cancer N Stroke N Dementia N Nasal polyps N Asthma N High Cholesterol N Sleep Disorder N GERD/Reflux Y Liver Disease N Headaches N Fibromyalgia N Hypertension N Speech Delay N Kidney Disease N Gynecological HistoryNo gynecological history recorded. Obstetrics History GPAL:G 0 P 0 0 0 0 Past Encounters Encounter ID Performer Location Encounter Start Date Encounter Closed Date Diagnosis/Indication Diagnosis SNOMED-CT Code Diagnosis ICD10 Code Diagnosis Note [id number] DEVAUGHN CAM MD [facility] [address] [place] [address] 05/29/2024 13:25:17 05/29/2024 14:03:18 Adhesive middle ear disease 2642637 H74.12 Bilateral disorder of Eustachian tubes 6785427627 255530 H69.83 Mixed cond uctive and sensorineural hearing loss, bilateral 874223987 H90.6 [id number] DEVAUGHN CAM MD [facility] [address] [place] [address] 12/04/2024 15:12:55 12/04/2024 16:43:59 Adhesive middle ear disease 2256235 H74.12 Bilateral disorder of Eustachian tubes 8714376154 325987 H69.83 Sensorineu ral hearing loss in right ear 6189645981 9100 H90.A21 Audiologic al evaluation results:Ri ght ear:{{Norm al Normal through 2 kHz Mild M oderate Mo derately-s evere Poppy re Profoun d Severe raising to WNL at 3kHz#}} {{hearing hearing. s loping to a mild slopi ng to a moderate s loping to moderately severe slo ping to severe* sl oping to profound f lat high frequency low frequency mid frequency cookie bite frazier curve}} {{with sen sorineural hearing loss with* cond uctive hearing loss with mixed hearing loss with}} {{excellen t* good fa ir poor no measurable }} word recognitio n. A conductive component at 500Hz only.Left ear:{{Norm al Normal through 2 kHz Mild M oderate Mo derately-s evere Poppy re Profoun d Moderate ly-severe raising to WNL at 3kHz#}} {{hearing hearing. s loping to a mild slopi ng to a moderate s loping to moderately severe* sl oping to severe slo ping to profound f lat high frequency low frequency mid frequency cookie bite frazier curve}} {{with sen sorineural hearing loss with condu ctive hearing loss with mixed hearing loss with*}} {{excellen t* good fa ir poor no measurable }} word recognitio n. Tympanomet ry:Right Ear:{{Type A Type As Type Ad Type C Type C, shallow & rounded Ty pe B* Type B with large volume Cou ld not maintain a hermetic seal}}Left Ear:{{Type A* Type As Type Ad Type C Type C, shallow & rounded Ty pe B Type B with large volume Cou ld not maintain a hermetic seal}} Mixed cond uctive and sensorineural hearing loss of left ear [id number] H90.A32 [id number] MISHA LAWLER PA-C [facility] [address] [place] [address] 01/29/2025 15:33:32 01/29/2025 16:09:19 Chronic mycotic otitis externa [id number] H60.399 [id number] MISHA LAWLER PA-C [facility] [address] [place] [address] 02/04/2025 10:56:35 02/04/2025 11:45:25 Candidal otitis externa [id number] B37.84 Otorrhea [id number] H92.12 [id number] MISHA LAWLER PA-C [facility] [address] [place] [address] 02/13/2025 12:52:11 02/13/2025 13:30:30 Otorrhea of left ear [id number] H92.12 [id number] MISHA LAWLER PA-C [facility] [address] [place] [address] 02/27/2025 11:23:45 02/27/2025 14:57:36 Otorrhea of left ear [id number] H92.12 Health Concerns Section Related Observation LastModified by Organization Detai ls LastModified Time None Recorded Concern Status LastModified by Organization Details LastModified Time None Recorded Advance Directives Directive None Recorded Payers Encounter Date Sequence Insurance Name Policy Number Policy Guzman Covered Member ID Guzman Member ID Guarantor Name 12/04/2024 1 [id number] 1 Chiara Ambrocio [id number] Chiara J Lolly 01/29/2025 1 [facility] [id number] 1 Chiara J J Lolly [id number] Chiara J Lolly 02/04/2025 1 [facility] [id number] 1 Chiara J J Lolly [id number] Chiara J Lolly 02/13/2025 1 [facility] [id number] 1 Chiara J J Lolly [id number] Chiara J Lolly 02/27/2025 1 [facility] [id number] 1 Chiara J J Lolly [id number] Chiara J Lolly Notes Date Note Type Note Provider Name and Address Organization Details Recorded Time 12/04/2024 text/html 33-year-old dawn patel with history of a prior left tympanic membrane perforation which healed spontaneously with history of eustachian tube dysfunction and hearing loss for which she uses binaural amplification. She has a right T tube that was in good position and patent and a stable left tympanic membrane retraction with cartilage graft in place. Currently wearing binaural BTE hearing aids dispensed at [facility] audiology. Current devices purchased in 2020. Treated over the winter for right-sided otorrhea, requiring combination of oral and topical antibiotics. Currently asymptomatic DEVAUGHN CAM MD [address] [place] [address], [phone], [facility] 12/04/2024 16:46:20 01/29/2025 text/html 34-year-old dawn patel with eustachian tube dysfunction presents for evaluation of the ears. She contracted viral upper respiratory infection 5 weeks ago with subsequent bilateral ear infections. She was prescribed topical Ciprodex and oral Augmentin, cefdinir, and doxycycline. Patient reports minimal improvement in her ear pain. She continues to experience ear drainage and her hearing feels down. DEVAUGHN CAM MD [address] [place] [address],[address], [phone], [facility] 01/30/2025 08:38:14 02/04/2025 text/html 34-year-old dawn patel with right myringotomy tube presents for reevaluation of bilateral otitis externa. Patient reports she developed ear pain in both ears since using topical clotrimazole last week. She trialed topical Ciprodex and oral Augmentin, cefdinir, and doxycycline through outside practice prior. Hearing is at baseline. Some ear itchiness. No drainage. ELSIE MENENDEZ MD [address] [facility],[address], [address], [facility] 02/04/2025 12:47:18 02/13/2025 text/html 34-year-old fema le with amplification and right myringotomy tube presents for reevaluation of bilateral otitis externa. Culture of external auditory canals was unremarkable for bacteria or fungus, although it was collected after she started clotrimazole. Patient reports right-sided ear pain resolved. Today she has mild left-sided ear pain and pressure. CLEMENT ESCALONA MD [address] [facility],[address], [address], [facility] 02/14/2025 09:32:55 02/27/2025 text/html 34-year-old fema le with amplification and right myringotomy tube presents for reevaluation of left otitis externa. Patient reports ear pain and ear drainage resolved. Occasional temporomandibular joint pain, improved with ibuprofen. She feels her hearing is stable. She has not been wearing left amplification. CLEMENT ESCALONA MD [address] [facility],[address], [address], [facility] 02/27/2025 17:05:10 OBGyn Episode No OBEpisode recorded.
--- NOTE | 2025-03-11 16:49 | MHC.AU.HA3 ---
Hearing Instrument Follow-Up- Binaural Date of Visit: 03/11/25 Right Ear: Make, Model, Color, Serial Number: Oticon More 1 miniRITE-R SN: [id number] Color: [place]unnelton Brown Licensed Esthetician Repair Warranty: 07/10/2024 Licensed Esthetician Loss and Damage Warranty: 07/10/2024 [facility] Service Plan: 07/10/24 Battery Size: Rechargeable Web Portal Developer/Slim Tube: Earmold/Dome/CShell/SlimTip:Oticon RITE mold soft Minifit transparent S# [id number] warranty 04/27/2024 Type of Wax Guard: miniFit Dispensed By: [facility] Date of Fittin06/16/2021 Left Ear: Make, Model, Color, Serial Number: Oticon More 1 miniRITE-R SN: [id number] Color: Tunnelton Brown Licensed Esthetician Repair Warranty: 07/10/2024 Licensed Esthetician Loss and Damage Warranty: 07/10/2024 [facility] Service Plan: 07/10/24 Battery Size: Rechargeable Web Portal Developer/Slim Tube: Earmold/Dome/CShell/SlimTip: Oticon RITE mold soft minifit transparent S#[id number] warranty 04/27/2024 Type of Wax Guard: Prowax minifit Dispensed By: [facility] Date of Fittin06/16/21 Follow-Up Summary: Reports HAs not lasting all day, right dies in the afternoon, left lasts a couple hours longer. Brought recent eval from ENT, no significant change, did not adjust HAs today. Cleaned both aids and earmolds, changed wax guards, brushed debris from microphones. Chiara reports improved sound quality. Had one replacement battery in house, replaced the right battery. Chiara paid for both today. When the batteries come in 1 goes to stock and Chiara needs an appt. to have the left battery swapped. No charge for that appointment. Recommendations: Recommendations: Patient will be contacted when materials have arrived. Diagnosis Code(s): Primary Diagnosis: H90.3 Bilateral Sensorineural Hearing Loss Signature: Provider: Sindhu Pierson, [facility]
== END 2025-03-11 15:47 | disposition home or self-care (01) ==
LOC: HO.HAP 15:46
PROVIDERS: Visit Provider Internal Medicine
DX: Z46.1 Encounter for fitting and adjustment of hearing aid (principal); H90.3 Sensorineural hearing loss, bilateral
CPT/HCPCS: 92593; V5267; V5299

== ENCOUNTER 2025-03-25 16:07 | Outpatient (REF) | payer SELFPAY ==
--- OUTSIDE RECORDS SUMMARY | 2025-03-25 16:09 | XMS_ITS | Data Portability ---
Author Organization [place] - [facility], Allergy Address [address] [address] Care Team Providers Care Monomer Recovery Operator Name Role Phone OVI DOYLE Primary Care [...] months for next tube check and cleaning. [email or web address] Not available 12/04/2024 16:12:35 01/29/2025 01/29/2025 34yo [...] the tympanic membrane. Patient is traveling to [place], so I will send watch and wait topical Ciprodex prescription due to recurrent nature of ear infections. Patient will return for routine ear check with Dr. Cam in 3 months. [email or web address] Not available 02/27/2025 15:47:03 Plan of Treatment Reminders Order Date Submit Date Provider Last Modified By Organization Details Last Modified Time Details Appointments [place] [id number] 2024 01:40P Sandra CAM MD Not available [...] %-0.1 % ear drops,wyman spension 2024 025 [facility], [address] [place] [address], [place], [address], 02/27/2025 12:00:29 Patient TargetsNo targets recorded. Patient InstructionsNo instructions recorded. Reason for Referral None Reported. Results Created Date Observation Date Name Description Value Unit Range Abnormal Flag Note LastModifiedBy Organization Detail LastModifiedTime 02/05/2002/07/2025 ANAER OBIC AND AEROB IC CULTU RE aerobic culture Final report Not Available [facility] ([facility]) [address] [facility], [place], [address], 03/05/2025 07:41:33 02/05/2002/07/2025 ANAER OBIC AND AEROB IC CULTU RE result 1 COMMEN T No growt h in 36 - 48 hours . Not Available [facility] ([facility]) [address] [facility], [place], [address], 03/05/2025 07:41:33 02/05/20 25 02/08/2025 ANAER OBIC AND AEROB IC CULTU RE anaerobic culture Final report Not Available [facility] ([facility]) [address] [facility], [place], [address], 03/05/2025 07:41:33 02/05/20 25 02/08/2025 ANAER OBIC AND AEROB IC CULTU RE result 1 COMMEN T No anaer obic growt h in 72 hours . Not Available [facility] ([facility]) [address] [facility], [place], [address], 03/05/2025 07:41:33 02/05/20 25 02/05/2025 FUNGU S CULTU RE WITH STAIN fungus stain Final report Not Available [facility] ([facility]) [address] [facility], [place], [address], 03/05/2025 07:41:34 02/05/20 25 02/05/2025 FUNGU S CULTU RE WITH STAIN result 1 COMMEN T MESHA/C alcof luor prepa ratio n: no fungu s obser julio césar. Not Available [facility] ([facility]) [address] [facility], [place], [address], 03/05/2025 07:41:34 02/05/20 25 03/05/2025 FUNGU S CULTU RE WITH STAIN fungus (mycology) culture Final report Not Available [facility] ([facility]) [address] [place], [address], 03/05/2025 07:41:34 02/05/20 25 03/05/2025 FUNGU S CULTU RE WITH STAIN result 1 COMMEN T No yeast or mold isola gunner after 4 weeks . Not Available [facility] ([facility]) [address] [place], [address], 03/05/2025 07:41:34 02/05/20 25 02/04/2025 ONE SPECI [...] of colle ction . Not Available [facility] ([facility]) [address] [place], [address], 03/05/2025 07:41:34 02/05/20 25 02/06/2025 FUNGU S CULTU RE WITH STAIN fungus stain Final report Not Available [facility] ([facility]) [address] [place], [address], 03/06/2025 09:16:42 02/05/2002/06/2025 FUNGU S CULTU RE WITH STAIN result 1 COMMEN T MESHA/C alcof luor prepa ratio n: no fungu s obser julio césar. Not Available [facility] ([facility]) [address] [place], [address], 03/06/2025 09:16:42 02/05/20 25 03/06/2025 FUNGU S CULTU RE WITH STAIN fungus (mycology) culture Final report Not Available [facility] ([facility]) [address] [place], [address], 03/06/2025 09:16:42 02/05/2003/06/2025 FUNGU S CULTU RE WITH STAIN result 1 COMMEN T No yeast or mold isola gunner after 4 weeks . Not Available [facility] ([facility]) [address] [place], [address], 03/06/2025 09:16:42 02/05/20 25 02/07/2025 ANAER OBIC AND AEROB IC CULTU RE aerobic culture Final report Not Available [facility] ([facility]) [address] [place], [address], 03/06/2025 09:16:43 02/05/2002/07/2025 ANAER OBIC AND AEROB IC CULTU RE result 1 COMMEN T No growt h in 36 - 48 hours . Not Available [facility] ([facility]) [address] [facility], [place], [address], 03/06/2025 09:16:43 02/05/2002/08/2025 ANAER OBIC AND AEROB IC CULTU RE anaerobic culture Final report Not Available [facility] ([facility]) [address] [facility], [place], [address], 03/06/2025 09:16:43 02/05/2002/08/2025 ANAER OBIC AND AEROB IC CULTU RE result 1 COMMEN T No anaer obic growt h in 72 hours . Not Available [facility] ([facility]) [address] [facility], [place], [address], 03/06/2025 09:16:43 02/05/2002/05/2025 ONE SPECI MEN IDENT [...] of colle ction . Not Available [facility] ([facility]) [address] [facility], [place], [address], 03/06/2025 09:16:43 12/05/19 audio gram No observ ation record ed. BARCODE Not Available 2024 10:16:35 Result Notes None recorded. Problems Name Problem SNOMED Code Status Onset Date Resolution Date Notes Provider Name and Address Organization Details Recorded Time Pain of left temporom andibula r joint 94402253517 149076 Active 2017 Arthralg ia of left temporom andibula r joint; Note: Date Diagnose d: 11/07/20 18 3:39 PM (M26.622 ) Not Available [facility] 4 02:52:06 Mixed conducti ve and sensorin eural hearing loss, bilatera l 537158363 Active 2015 Mixed hearing loss, bilatera l; Note: Date Diagnose d: 10/05/20 14 10:29 AM (389.22) ; Start Date : 10/05/20 14 Mixed conducti ve and sensorin eural hearing loss, bilatera l; Note: Date Diagnose d: 6 9:08 AM (H90.6) [mapped from ICD9 code: 389.22] Not Available [facility] 4 02:52:08 Adhesive middle ear disease 3105774 Active 2022 Adhesive left middle ear disease; Note: Date Diagnose d: 3 10:16 AM (H74.12) Not Available [facility] 4 02:52:09 Impacted cerumen of bilatera l ears 78789019670 89753 Active 2017 Impacted cerumen, bilatera l; Note: Date Diagnose d: 11/07/20 18 3:06 PM (H61.23) Not Available [facility] 4 02:52:09 Mycosis 3694998 Completed 201506/13/2024 Other specifie d mycoses; Note: Date Diagnose d: 11/03/20 16 9:38 AM (B48.8) Not Available [facility] 4 02:52:09 Bilatera l disorder of Eustachi an tubes 32294087047 84848 Active 2015 Other specifie d disorder s of Eustachi an tube, bilatera l; Note: Date Diagnose d: 6 9:08 AM (H69.83) [mapped from ICD9 code: 381.81] Not Available [facility] 4 02:52:11 Perforat ion of left tympanic membrane 25822101017 93418 Completed 201506/13/2024 Unspecif ied perforat ion of tympanic membrane , left ear; Note: Date Diagnose d: 6 9:08 AM (H72.92) [mapped from ICD9 code: 384.20] Not Available [facility] 4 02:52:09 Candidal otitis externa 62158233 Completed 201706/13/2024 Candidal otitis externa; Location : left Not e: Date Diagnose d: 8 2:08 PM (B37.84) Candid al otitis externa; Location : left Not e: Date Diagnose d: 09/26/20 16 1:29 PM (B37.84) ; Start Date : 09/26/20 16 MISHA LAWLER PA-C [address] [facility],[place] [address], [place], [address] , [facility] - [facility] 5 16:11:08 Otorrhea of left ear [id number] 45828 Completed 201506/13/2024 Otorrhea , left ear; Note: Date Diagnose d: 6 9:08 AM (H92.12) [mapped from ICD9 code: 388.60] MISHA LAWLER PA-C [address] [facility],[place] [address], [place], [address] , [facility] - [facility] 5 14:52:07 Pain of right temporom andibula r joint 62693407382 365852 Active 2022 Arthralg ia of right temporom andibula r joint; Note: Date Diagnose d: 3 10:27 AM (M26.621 ) Not Available [facility] 4 02:52:08 Acute myringit is of right ear 81032331188 52151 Active 2020 Acute myringit is, right ear; Note: Date Diagnose d: 1 2:14 PM (H73.001 ) Not Available [facility] 4 02:52:07 Otorrhea of right ear 63659350948 57303 Active 2021 Otorrhea , right ear; Note: Date Diagnose d: 2 3:43 PM (H92.11) Otorrh ea, right ear; Note: Date Diagnose d: 11/03/20 16 9:38 AM (H92.11) ; Start Date : 11/03/20 16 Not Available [facility] 4 02:52:07 Acute myringit is 977350 Active 2014 Acute myringit is, unspecif ied; Note: Date Diagnose d: 5 9:13 AM (384.00) Not Available [facility] 4 02:52:07 Perforat ion of tympanic membrane 85431283 Active 2013 Perforat ion of tympanic membrane , unspecif ied; Note: Date Diagnose d: 10/05/20 14 10:26 AM (384.20) Not Available [facility] 4 02:52:08 Dysfunct ion of eustachi an tube 96155275 Active 2013 Eustachi an tube dysfunct ion; Note: Date Diagnose d: 10/05/20 14 10:26 AM (381.81) Not Available [facility] 4 02:52:10 Otorrhea 15869332 Active 2014 Otorrhea ; Note: Date Diagnose d: 5 9:13 AM (388.60) Not Available [facility] 4 02:52:10 Sensorin eural hearing loss in right ear 66107684275 100 Active 2024 Luz michael [place] - [facility] 5 16:40:36 Mixed conducti ve and 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 92748609017 107 Active 2024 Luz michael [place] - [facility] 5 16:42:59 Mixed conducti ve and 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 71358139953 107 Active 2024 DEVAUGHN CAM MD [address] [place] [address], [facility] [place], [address] , [place] - [facility] 5 16:43:24 Chronic mycotic otitis externa 668966549 Active 2024 MISHA LAWLER PA-C [address] [place] [address], [place], [address] , [place] - [facility] 5 16:11:08 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 2024 MISHA LAWLER PA-C [address] [facility] [place],[address], [place], [address] , [place] - [facility] 5 16:11:08 Candidal otitis externa 60939739 Active 2024 Candidal otitis externa; Location : left Not e: Date Diagnose d: 8 2:08 PM (B37.84) Candid al otitis externa; Location : left Not e: Date Diagnose d: 09/26/20 16 1:29 PM (B37.84) ; Start Date : 09/26/20 16 MISHA LAWLER PA-C [address] [facility] [address], [place], [address] , [place] - [facility] 5 16:11:08 Otorrhea of left ear 30797538420 69916 Active 2024 Otorrhea , left ear; Note: Date Diagnose d: 6 9:08 AM (H92.12) [mapped from ICD9 code: 388.60] MISHA LAWLER PA-C [address] [facility],[place] [address], [place], [address] , [place] - [facility] 14:52:07 Problem Notes None recorded. Procedures Surgical History Date Name Laterality Status Provider Name and Address Organization Details Recorded Time 12/04/19 25 Comp Audio with Tymps - 78966 & 95127 completed Luz Kirk [place] - [facility] 12/04/2024 16:39:48 Myringotomy Tube Placement completed Marii Medina [place] - [facility] 05/29/2024 13:48:40 tonsillectomy and adenoidectomy completed Marii Medina [place] - [facility] 05/29/2024 13:48:55 extraction of wisdom tooth completed Marii Medina [place] - [facility] 05/29/2024 13:49:02 Imaging Results Imaging Date Name Status LastModified by Organiz ation Details LastModified Time 12/05/2024 audiogram completed BARCODE Information no t available 12/05/2024 10:16:35 Procedure Notes None recorded. Medical Equipment None Reported. Allergies Allergen ID Allergen Name Allergen Category Reaction Reaction Severity Criticality Documentation Date Start Date Code Code System Note Provider Name and Address Organization Details Recorded Time 175489 azithromy torres medicatio n other Not available Not available 03/25/2024 00782 RxNorm React ion: unkno wn, unspe cifie d;; Not Available [facility] 01:10:35 Medications Name Sig Start Date Stop [...] layed release 2013 active Medicati on ID: [id number] Br and Name: aspirin Send Method: E-Prescr [...] topical solution 05/29 completed Medicati on ID: [id number] D uration Value: 14 Prescri bed By Name: Juve Suazo nd Name: bell Alegre d Method: E-Prescr ibed Sub s Allowed: subs OK Speci al Instruct ion: 4 drops to affected ear three times a day Medi cationGe nericNam e: clotrima zole Med ication ID: [id number] D uration Value: 14 Prescri bed By [...] drops,angela pension 05/29 completed Medicati on ID: [id number] D uration Value: 10 Brand Name: TobraDex Send Method: E-Prescr ibed Sub s Allowed: subs OK Speci al Instruct ion: Instill 4 drops in right ear BID for 14 days Med icationG enericNa me: TobraDex Medicat ion ID: [id number] D uration Value: 10 Brand Name: TobraDex [...] mg capsule 2013 active Medicati on ID: [id number] Br and Name: Zyrtec S end Method: E-Prescr ibed Sub s Allowed: subs OK Medic ationGen ericName : Zyrtec Not Available Not Available Not Available Vitals Date Recorded Body height Body mass index (BMI) Body weight Provider Name and Address Organization Details Last Updated DateTime 01/29/2025 152.4 cm 33.8 kg/m2 09044.48 g Juany Mcbride [place] - [facility] 01/29/2025 15:57:35 Date Recorded Body height Provider Name an d Address Organization Details Last Updated DateTime 02/13/2025 152.4 cm JAMES NATHALY [place] - [facility] 02/13/2025 12:59:38 Date Recorded Body height Body mass index (BMI) Body weight Provider Name and Address Organization Details Last Updated DateTime 02/27/2025 152.4 cm 34.2 kg/m2 79869.66 g Juany Mcbride [place] - [facility] 02/27/2025 11:38:42 Social History None recorded. Functional [...] Disorder N Anesthesia Complications N Heart Attack ([place]) N Other Skin Condition N Diabetes N Rhinitis Y Bleeding Disorder N Food Allergy N Arthritis N Hearing Loss Y Hyperlipidemia N Cancer N Stroke N Dementia N Nasal polyps N Asthma N Sleep Disorder N GERD/Reflux Y High Cholesterol N Liver Disease N Headaches N Fibromyalgia N Hypertension N Speech Delay N Kidney Disease N Gynecological HistoryNo gynecological history recorded. Obstetrics History GPAL:G 0 P 0 0 0 0 Past Encounters Encounter ID Performer Location Encounter Start Date Encounter Closed Date Diagnosis/Indication Diagnosis SNOMED-CT Code Diagnosis ICD10 Code Diagnosis Note [id number] DEVAUGHN CAM MD [facility] [address] [place] [address] 05/29/2024 13:25:17 05/29/2024 14:03:18 Adhesive middle ear disease 5431645 H74.12 Bilateral disorder of Eustachian tubes 2817399729 732383 H69.83 Mixed cond uctive and sensorineural hearing loss, bilateral 247196408 H90.6 [id number] DEVAUGHN CAM MD [facility] [address] [place] [address] 12/04/2024 15:12:55 12/04/2024 16:43:59 Adhesive middle ear disease 9338983 H74.12 Bilateral disorder of Eustachian tubes 7587564323 398123 H69.83 Sensorineu ral hearing loss in right ear 4623335864 9100 H90.A21 Audiologic al evaluation results:Ri ght [...] and sensorineural hearing loss of left ear 9887428094 9107 H90.A32 [id number] MISHA LAWLER PA-C [facility] [address] [place] [address] 01/29/2025 15:33:32 01/29/2025 16:09:19 Chronic mycotic otitis externa 745102705 H60.399 [id number] MISHA LAWLER PA-C [facility] [address] [place] [address] 02/04/2025 10:56:35 02/04/2025 11:45:25 Candidal otitis externa 43577781 B37.84 Otorrhea 39082579 H92.12 [id number] MISHA LAWLER PA-C [facility] [address] [place] [address] 02/13/2025 12:52:11 02/13/2025 13:30:30 Otorrhea of left ear 0194085324 953844 H92.12 [id number] MISHA LAWLER PA-C [facility] [address] [place] [address] 02/27/2025 11:23:45 02/27/2025 14:57:36 Otorrhea of left ear 0529434360 620328 H92.12 Health Concerns Section Related Observation LastModified by Organization Detai ls LastModified Time None Recorded Concern Status LastModified by Organization Details LastModified Time None Recorded Advance Directives Directive None Recorded Payers Insurance Date Sequence Insurance Name Policy Number Policy Guzman Covered Member ID Guzman Member ID Guarantor Name 02/27/2025 1 [facility] [id number] 1 Chiara Ambrocio [id number] Chiara Ambrocio Notes Date Note Type Note Provider Name [...] wearing binaural BTE hearing aids dispensed at [facility] audiology. Current devices purchased in 2020. Treated over the winter for right-sided otorrhea, requiring combination of oral and topical antibiotics. Currently asymptomatic DEVAUGHN CAM MD [address] [place] [address],[address], [address], [facility] 12/04/2024 16:46:20 01/29/2025 text/html 34-year-old dawn patel [...] her hearing feels down. DEVAUGHN CAM MD [address] [facility],[address], [address], [facility] 01/30/2025 08:38:14 02/04/2025 text/html 34-year-old dawn patel with right myringotomy tube presents for reevaluation of bilateral otitis externa. Patient reports she developed ear pain in both ears since using topical clotrimazole last week. She trialed topical Ciprodex and oral Augmentin, cefdinir, and doxycycline through outside practice prior. Hearing is at baseline. Some ear itchiness. No drainage. ELSIE MENENDEZ MD [address] [facility],[address], [address], [facility] 02/04/2025 12:47:18 02/13/2025 text/html 34-year-old dawn patel with amplification and right myringotomy tube presents for reevaluation of bilateral otitis externa. Culture of external auditory canals was unremarkable for bacteria or fungus, although it was collected after she started clotrimazole. Patient reports right-sided ear pain resolved. Today she has mild left-sided ear pain and pressure. CLEMENT ESCALONA MD [address] [place] [address],[place] [address], [place], [address], [facility] - [facility] 02/14/2025 09:32:55 02/27/2025 text/html 34-year-old fema le with amplification and right myringotomy tube presents for reevaluation of left otitis externa. Patient reports ear pain and ear drainage resolved. Occasional temporomandibular joint pain, improved with ibuprofen. She feels her hearing is stable. She has not been wearing left amplification. CLEMENT ESCALONA MD [address] [place] [address],[place] [address], [place], [address], [facility] 02/27/2025 17:05:10 OBGyn Episode No OBEpisode recorded.
--- NOTE | 2025-03-26 09:43 | MHC.AU.HA3 ---
Hearing Instrument Follow-Up- Binaural Date of Visit: 03/25/25 Right Ear: Make, Model, Color, Serial Number: Oticon More 1 miniRITE-R SN: [id number] Color: [place] Brown Delivery Engineer Repair Warranty: 07/10/2024 Delivery Engineer Loss and Damage Warranty: 07/10/2024 [facility] Service Plan: 07/10/24 Battery Size: Rechargeable Women'S Activities Adviser/Slim Tube: Earmold/Dome/CShell/SlimTip:Oticon RITE mold soft Minifit transparent S# [id number] warranty 04/27/2024 Type of Wax Guard: miniFit Dispensed By: [facility] Date of Fittin06/16/2021 Left Ear: Make, Model, Color, Serial Number: Oticon More 1 miniRITE-R SN: [id number] Color: [place]aan Brown Delivery Engineer Repair Warranty: 07/10/2024 Delivery Engineer Loss and Damage Warranty: 07/10/2024 [facility] Service Plan: 07/10/24 Battery Size: Rechargeable Women'S Activities Adviser/Slim Tube: Earmold/Dome/CShell/SlimTip: Oticon RITE mold soft minifit transparent S#[id number] warranty 04/27/2024 Type of Wax Guard: Prowax minifit Dispensed By: [facility] Date of Fittin06/16/21 Follow-Up Summary: Here to have new rechargeable battery that she already paid for placed in left hearing aid. Done. Noted trouble hearing on the phone at work with the left side recently. Reports feeling like she cannot find the sweet spot to hear well. Questions if hearing aid is weak or there is a shooter helper problem. Cleaned aid, cleaned earmold, ran through dehumidifier, brushed and vacuumed livia ports, vacuumed shooter helper connection point, replaced wax guard. Listening check positive. Tested a different shooter helper and it sounded the same. Chiara reported the hearing aid sounded clearer after cleaning but she still could not hear our office phone well. Otoscopy clear, question of visible perforation As, Chiara reports that might just be the scarring from previous surgery. She noted that hearing has felt worse since being sick recently. Increased overall gain 3 steps for both sides as Chiara reported she is often turning the aids all the way up at work. Tried a T-Coil program but could not activate connection with our office phone when trying to test it. Landed on an acoustic phone program in slot 3 for the left ear with overall gain increased significantly for Chiara to hear our office phone well. Chiara has an upcoming appt. with Dr. Pastor, indicated she will contact them to see if she can be seen any sooner for an updated hearing test to check for any changes in hearing. Return for programming adjustments as needed. If hearing is stable and she still finds the left to be weak will further investigate the hearing aid. Chiara expressed interest in accessory to pair with phone at work, this would be Phone Adapter 2.0 run through her Connect Clip and can be discussed further at her next visit. Recommendations: Recommendations: Return following ENT visit. Diagnosis Code(s): Primary Diagnosis: H90.6 Mixed Hearing Loss, Bilateral Signature: Provider: Sindhu Pierson, CCC-A
== END 2025-03-25 16:08 | disposition home or self-care (01) ==
LOC: HO.HAP 16:07
PROVIDERS: Visit Provider Internal Medicine
DX: Z13.89 Encounter for screening for other disorder (principal)

== ENCOUNTER 2025-04-29 15:37 | Outpatient (REF) | payer SELFPAY ==
--- OUTSIDE RECORDS SUMMARY | 2025-04-29 17:49 | XMS_ITS | Data Portability ---
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 Patient is traveling to [place], so I will send watch and wait topical Ciprodex prescription due to recurrent nature of ear infections. Patient will return for routine ear check with Dr. Cam in 3 months. [email or web address] Not available 02/27/2025 15:47:03 04/03/2025 04/03/2025 34-year-old female presents for reevaluation. On examination T-tube remains in place and patent. Left ear with wet squamous debris cleared with suction. 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 Audiometric testing was obtained today showing stable mixed hearing loss on the right and worsening mixed hearing loss on the left. This likely represents further conductive loss on the left side from tympanic membrane perforation. Recommended dry ear precaution. No infection so no need for further treatment. She has an appointment with Dr. Cam at the end of April at which time we can recheck for perforation and discuss tympanoplasty if necessary. In the meantime, I have provided her with a copy of her hearing test for amplification adjustment. All questions were answered. [email or web address] Not available 04/03/2025 16:27:08 Plan of Treatment Reminders Order Date Submit Date Provider Last Modified By Organization Details Last Modified Time Details Appointments Establish ed 10 2024 01:40P Sandra CAM MD Not available Not available Not available Lab fungus, culture, unspecifi ed specimen 2024 LUANNE [facility] (Centralized Electronic Ordering - All Locations), Patient Can Go To The Location Of Their Choice, 03/05/2025 07:41:34 culture, bacterial [address] [facility] (Centralized [facility] Ordering - All Locations), Patient Can Go To The Location Of Their Choice, 04/06/2025 13:49:39 fungus, culture, unspecifi ed specimen [address] [facility] (Centralized Electronic Ordering - All Locations), Patient Can Go To The Location Of Their Choice, 04/06/2025 13:49:39 culture, bacterial 2024 LYNDEN [facility] (Centralized Electronic Ordering - All Locations), Patient Can Go To The Location Of Their Choice, 03/05/2025 07:41:33 Referral None recorded. Procedures None recorded. Surgeries None recorded. Imaging None recorded. Medication Orders Ciprodex 0.3 %-0.1 % ear drops,angela pension 2024 [facility], [address] [place] [address], [place], [address], 02/27/2025 12:00:29 Patient TargetsNo targets recorded. Patient InstructionsNo instructions recorded. Reason for Referral None Reported. Results Created Date Observation Date Name Description Value Unit Range Abnormal Flag Note LastModifiedBy Organization Detail LastModifiedTime 02/05/2002/07/2025 ANAER OBIC AND AEROB IC CULTU RE aerobic culture Final report Not Available [facility] ([facility]) [address] [facility], [place], [address], 03/05/2025 07:41:33 02/05/2002/07/2025 ANAER OBIC AND AEROB IC CULTU RE result 1 COMMEN T No growt h in 36 - 48 hours . Not Available [facility] ([facility]) [address] [facility], [place], [address], 03/05/2025 07:41:33 02/05/20 25 02/08/2025 ANAER OBIC AND AEROB IC CULTU RE anaerobic culture Final report Not Available [facility] ([facility]) [address] [place], [address], 03/05/2025 07:41:33 02/05/20 25 02/08/2025 ANAER OBIC AND AEROB IC CULTU RE result 1 COMMEN T No anaer obic growt h in 72 hours . Not Available [facility] ([facility]) [address] [facility], [place], [address], 03/05/2025 07:41:33 02/05/20 25 02/05/2025 FUNGU S CULTU RE WITH STAIN fungus stain Final report Not Available [facility] ([facility]) [address] [facility], [place], [address], 03/05/2025 07:41:34 02/05/20 25 02/05/2025 FUNGU S CULTU RE WITH STAIN result 1 COMMEN T MESHA/C alcof luor prepa ratio n: no fungu s obser julio césar. Not Available [facility] ([facility]) [address] [place], [address], 03/05/2025 07:41:34 02/05/20 25 03/05/2025 FUNGU S CULTU RE WITH STAIN fungus (mycology) culture Final report Not Available [facility] ([facility]) [address] [place], [address], 03/05/2025 07:41:34 02/05/20 25 03/05/2025 FUNGU S CULTU RE WITH STAIN result 1 COMMEN T No yeast or mold isola gunner after 4 weeks . Not Available [facility] ([facility]) [address] [place], [address], 03/05/2025 07:41:34 02/05/20 25 02/04/2025 ONE SPECI MEN IDENT IFIER one specimen identifier Commen t The speci men recei julio césar inclu ded only one patie nt ident ifier on the prima ry colle ction conta iner. Our labor atory heavenly[facility] ada g agenc y state s All prima ry speci men conta iners must be label ed with 2 ident ifier s at the time of colle ction . Not Available [facility] ([facility]) [address] [place], [address], 03/05/2025 07:41:34 02/05/2002/06/2025 FUNGU S CULTU RE WITH STAIN fungus stain Final report Not Available [facility] ([facility]) [address] [place], [address], 03/06/2025 09:16:42 02/05/2002/06/2025 FUNGU S CULTU RE WITH STAIN result 1 COMMEN T MESHA/C alcof luor prepa ratio n: no fungu s obser julio césar. Not Available [facility] ([facility]) [address] [facility], [place], [address], 03/06/2025 09:16:42 02/05/2003/06/2025 FUNGU S CULTU RE WITH STAIN fungus (mycology) culture Final report Not Available [facility] ([facility]) [address] [place], [address], 03/06/2025 09:16:42 02/05/2003/06/2025 FUNGU S CULTU RE WITH STAIN result 1 COMMEN T No yeast or mold isola gunner after 4 weeks . Not Available [facility] ([facility]) [address] [place], [address], 03/06/2025 09:16:42 02/05/2002/07/2025 ANAER OBIC AND AEROB IC CULTU RE aerobic culture Final report Not Available [facility] ([facility]) [address] [place], [address], 03/06/2025 09:16:43 02/05/2002/07/2025 ANAER OBIC AND AEROB IC CULTU RE result 1 COMMEN T No growt h in 36 - 48 hours . Not Available [facility] ([facility]) [address] [facility], [place], [address], 03/06/2025 09:16:43 02/05/2002/08/2025 ANAER OBIC AND AEROB IC CULTU RE anaerobic culture Final report Not Available [facility] ([facility]) [address] [facility], [place], [address], 03/06/2025 09:16:43 02/05/2002/08/2025 ANAER OBIC AND AEROB IC CULTU RE result 1 COMMEN T No anaer obic growt h in 72 hours . Not Available [facility] ([facility]) [address] [facility], [place], [address], 03/06/2025 09:16:43 02/05/2002/05/2025 ONE SPECI MEN IDENT [...] of colle ction . Not Available [facility] ([facility]) [address] [facility], [place], [address], 03/06/2025 09:16:43 04/03/20 audio gram No observ ation record ed. BARCODE Not Available 2024 16:39:48 Result Notes None recorded. Problems Name Problem SNOMED Code Status Onset Date Resolution Date Notes Provider Name and Address Organization Details Recorded Time Pain of left temporom andibula r joint 41540052163 440192 Active 2017 Arthralg ia of left temporom andibula r joint; Note: Date Diagnose d: 11/07/20 18 3:39 PM (M26.622 ) Not Available [facility] 4 02:52:06 Mixed conducti ve and sensorin eural hearing loss, bilatera l 273321881 Active 2015 Mixed hearing loss, bilatera l; Note: Date Diagnose d: 10/05/20 14 10:29 AM (389.22) ; Start Date : 10/05/20 14 Mixed conducti ve and sensorin eural hearing loss, bilatera l; Note: Date Diagnose d: 6 9:08 AM (H90.6) [mapped from ICD9 code: 389.22] Not Available [facility] 4 02:52:08 Adhesive middle ear disease 3035514 Active 2022 Adhesive left middle ear disease; Note: Date Diagnose d: 3 10:16 AM (H74.12) Not Available [facility] 4 02:52:09 Impacted cerumen of bilatera l ears 59519226484 04415 Active 2017 Impacted cerumen, bilatera l; Note: Date Diagnose d: 11/07/20 18 3:06 PM (H61.23) Not Available [facility] 4 02:52:09 Mycosis 8876268 Completed 201506/13/2024 Other specifie d mycoses; Note: Date Diagnose d: 11/03/20 16 9:38 AM (B48.8) Not Available [facility] 4 02:52:09 Bilatera l disorder of Eustachi an tubes 53771607891 11882 Active 2015 Other specifie d disorder s of Eustachi an tube, bilatera l; Note: Date Diagnose d: 6 9:08 AM (H69.83) [mapped from ICD9 code: 381.81] Not Available [facility] 4 02:52:11 Perforat ion of left tympanic membrane 92281340856 45838 Completed 201506/13/2024 Unspecif ied perforat ion of tympanic membrane , left ear; Note: Date Diagnose d: 6 9:08 AM (H72.92) [mapped from ICD9 code: 384.20] Not Available [facility] 4 02:52:09 Candidal otitis externa 46637771 Completed 201706/13/2024 Candidal otitis externa; Location : left Not e: Date Diagnose d: 8 2:08 PM (B37.84) Candid al otitis externa; Location : left Not e: Date Diagnose d: 09/26/20 16 1:29 PM (B37.84) ; Start Date : 09/26/20 16 MISHA LAWLER PA-C [address] [place] [address],[place] [address], [facility] [place], [address] , [facility] - [facility] 5 16:11:08 Otorrhea of left ear 38586081348 07393 Completed 201506/13/2024 Otorrhea , left ear; Note: Date Diagnose d: 6 9:08 AM (H92.12) [mapped from ICD9 code: 388.60] MISHA LAWLER PA-C [address] [place] [address],[place] [address], [facility] [place], [address] , [facility] 5 14:52:07 Pain of right temporom andibula r joint 20776722682 518713 Active 2022 Arthralg ia of right temporom andibula r joint; Note: Date Diagnose d: 3 10:27 AM (M26.621 ) Not Available [facility] 4 02:52:08 Acute myringit is of right ear 68027783832 48704 Active 2020 Acute myringit is, right ear; Note: Date Diagnose d: 1 2:14 PM (H73.001 ) Not Available [facility] 4 02:52:07 Otorrhea of right ear 49011721055 76892 Active 2021 Otorrhea , right ear; Note: Date Diagnose d: 2 3:43 PM (H92.11) Otorrh ea, right ear; Note: Date Diagnose d: 11/03/20 16 9:38 AM (H92.11) ; Start Date : 11/03/20 16 Not Available [facility] 4 02:52:07 Acute myringit is 692348 Active 2014 Acute myringit is, unspecif ied; Note: Date Diagnose d: 5 9:13 AM (384.00) Not Available [facility] 4 02:52:07 Perforat ion of tympanic membrane 99797975 Active 2013 Perforat ion of tympanic membrane , unspecif ied; Note: Date Diagnose d: 10/05/20 14 10:26 AM (384.20) Not Available [facility] 4 02:52:08 Dysfunct ion of eustachi an tube 01339321 Active 2013 Eustachi an tube dysfunct ion; Note: Date Diagnose d: 10/05/20 14 10:26 AM (381.81) Not Available [facility] 4 02:52:10 Otorrhea 43066017 Active 2014 Otorrhea ; Note: Date Diagnose d: 5 9:13 AM (388.60) Not Available [facility] 4 02:52:10 Sensorin eural hearing loss in right ear 49181708727 100 Active 2024 Luz michael [place] - [facility] 5 16:40:36 Mixed conducti ve and 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 81650458346 107 Active 2024 Luz michael [place] - [facility] 5 16:42:59 Mixed conducti ve and 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 46467443784 107 Active 2024 DEVAUGHN CAM MD [address] [place] [address], [place], [address] , [facility] - [facility] 5 16:43:24 Chronic mycotic otitis externa 077745259 Active 2024 MISHA LAWLER PA-C [address] [facility],[place] [address], [place], [address] , [facility] - [facility] 5 16:11:08 Dermal mycosis 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 Active 2024 MISHA LAWLER PA-C [address] [facility],[place] [address], [facility] [place], [address] , [place] - [facility] 5 16:11:08 Candidal otitis externa 10492683 Active 2024 Candidal otitis externa; Location : left Not e: Date Diagnose d: 8 2:08 PM (B37.84) Candid al otitis externa; Location : left Not e: Date Diagnose d: 09/26/20 16 1:29 PM (B37.84) ; Start Date : 09/26/20 16 MISHA LAWLER PA-C [address] [facility],[place] [address], [facility] [place], [address] , [place] - [facility] 5 16:11:08 Otorrhea of left ear 06436136035 25309 Active 2024 Otorrhea , left ear; Note: Date Diagnose d: 6 9:08 AM (H92.12) [mapped from ICD9 code: 388.60] MISHA LAWLER PA-C [address] [place] [address],[place] [address], [facility] [place], [address] , [facility] - [facility] 5 14:52:07 Problem Notes None recorded. Procedures Surgical History Date Name Laterality Status Provider Name and Address Organization Details Recorded Time 04/03/20 25 Air & Speech Audio with Tymps - 79334, 60367 & 41975 completed ODIN PLATT [address] [facility],[place] [address], [place], [address], [facility] - [facility] 04/03/2025 15:55:33 12/04/19 25 Comp Audio with Tymps - 83941 & 89629 completed Luz Kirk [place] - [facility] 12/04/2024 16:39:48 Myringotomy Tube Placement completed Marii Medina [place] - [facility] 05/29/2024 13:48:40 tonsillectomy and adenoidectomy completed Marii Medina [place] - [facility] 05/29/2024 13:48:55 extraction of wisdom tooth completed Marii Medina [place] [facility] 05/29/2024 13:49:02 Imaging Results None recorded. Procedure Notes None recorded. Medical Equipment None Reported. Allergies Allergen ID Allergen Name Allergen Category Reaction Reaction Severity Criticality Documentation Date Start Date Code Code System Note Provider Name and Address Organization Details Recorded Time 365633 azithromy torres medicatio n other Not available Not available 03/25/2024 64969 RxNorm React ion: unkno wn, unspe cifie d;; Not Available [facility] 01:10:35 Medications Name Sig Start Date Stop [...] layed release 2013 active Medicati on ID: [id number] Br and Name: aspirin Send Method: E-Prescr [...] topical solution 05/29 completed Medicati on ID: [id number] D uration Value: 14 Prescri bed By Name: Juve Suazo nd Name: bell Alegre d Method: E-Prescr ibed Sub s Allowed: subs OK Speci al Instruct ion: 4 drops to affected ear three times a day Medi cationGe nericNam e: clotrima zole Med ication ID: [id number] D uration Value: 14 Prescri bed By Name: Juve Suazo nd Name: bell Alegre d Method: E-Prescr ibed Sub s Allowed: subs OK Irais al Instruct ion: 4 drops to affected [...] drops,angela pension 05/29 completed Medicati on ID: [id number] D uration Value: 10 Brand Name: TobraDex Send Method: E-Prescr ibed Sub s Allowed: subs OK Speci al Instruct ion: Instill 4 drops in right ear BID for 14 days Med icationG enericNa me: TobraDex Medicat ion ID: [id number] D uration Value: 10 Brand Name: TobraDex [...] mg capsule 2013 active Medicati on ID: [id number] Br and Name: Zyrtec S end Method: E-Prescr ibed Sub s Allowed: subs OK Medic ationGen ericName : Zyrtec Not Available Not Available Not Available Vitals Date Recorded Body height Body mass index (BMI) Body weight Provider Name and Address Organization Details Last Updated DateTime 01/29/2025 152.4 cm 33.8 kg/m2 71684.48 g Juany Mcbride [place] - [facility] 01/29/2025 15:57:35 Date Recorded Body height Provider Name an d Address Organization Details Last Updated DateTime 02/13/2025 152.4 cm JAMES COMI [place] - [facility] 02/13/2025 12:59:38 Date Recorded Body height Body mass index (BMI) Body weight Provider Name and Address Organization Details Last Updated DateTime 02/27/2025 152.4 cm 34.2 kg/m2 37739.66 g Juany Mcbride [place] - [facility] 02/27/2025 11:38:42 Social History Question Answer Notes LastModified by Organizat ion Details LastModified Time Tobacco Smoking Status Never Smoker Marii michael [place] - [facility] 05/29/2024 13:48:31 How Many Years Have You Consumed Alcohol? 12 [email or web address] Information not available 04/03/2025 What Type Of Associate Software Application Engineer Do You Use? None [email or web address] Information not available 04/03/2025 How Many Alcoholic Drinks Do You Consume Per Day On Average? 2 [email or web address] Information not available 04/03/2025 Do You Have Any Pets? No [email or web address] Information not available 04/03/2025 Are You Passively Exposed To Smoke? No [email or web address] Information not available 04/03/2025 Are There Any Smokers In Your House? No [email or web address] Information not available 04/03/2025 Sex: Unknown Functional Status Question Answer Note LastModified by Organization Details LastModified Time How many times per week do you consume alcohol? Less than 1 time per week [email or web address] Inform ation not available 04/03/2025 Do you use any illicit or recreational drugs? No Information not available 04/03/2025 Do you or have you ever used any other forms of tobacco or nicotine? No [email or web address] Information not available 04/03/2025 What is your level of alcohol consumption? 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 [email or web address] Infor mation not available 04/03/2025 Mental Status None recorded. Family History Nothing Reported. Medical History Condition Response Allergies/Hayfever Y Heart Problems N Anxiety N Tonsil Infections Y Emphysema N Migraines N Thyroid Problems N Glaucoma N Depression N COPD N Developmental Delay N Nasal or Sinus Problems Y Anemia N Immune System Disorder N Anesthesia Complications N Heart Attack ([place]) N Other Skin Condition N Diabetes N [...] Note [id number] DEVAUGHN CAM MD [facility] [address] [address] 05/29/2024 13:25:17 05/29/2024 14:03:18 Adhesive middle ear disease 3267565 H74.12 Bilateral disorder of Eustachian tubes 3522658244 515567 H69.83 Mixed cond uctive and sensorineural hearing loss, bilateral 956448477 H90.6 [id number] DEVAUGHN CAM MD [facility] [address] [address] 12/04/2024 15:12:55 12/04/2024 16:43:59 Adhesive middle ear disease 2296350 H74.12 Bilateral disorder of Eustachian tubes 7214943413 099724 H69.83 Sensorineu ral hearing loss in right ear 3820340645 9100 H90.A21 Audiologic al evaluation results:Ri ght ear:Severe raising to WNL at 3kHz sloping to severe sensorineu ral hearing loss with excellent word recognitio n. A conductive component at 500Hz only.Left ear:Modera tely-sever e raising to WNL at 3kHz sloping to moderately severe mixed hearing loss with excellent word recognitio n. Tympanomet ry:Right Ear:Type BLeft Ear:Type A Mixed cond uctive and sensorineural hearing loss of left ear 4841332789 9107 H90.A32 [id number] MISHA LAWLER PA-C [facility] [address] [address] 01/29/2025 15:33:32 01/29/2025 16:09:19 Chronic mycotic otitis externa 201569215 H60.399 [id number] MISHA LAWLER PA-C [facility] [address] [address] 02/04/2025 10:56:35 02/04/2025 11:45:25 Candidal otitis externa 04019748 B37.84 Otorrhea 41801446 H92.12 [id number] MISHA LAWLER PA-C [facility] [address] [address] 02/13/2025 12:52:11 02/13/2025 13:30:30 Otorrhea of left ear 9282024049 032786 H92.12 [id number] MISHA LAWLER PA-C [facility] [address] [address] 02/27/2025 11:23:45 02/27/2025 14:57:36 Otorrhea of left ear 0595720303 919361 H92.12 [id number] ISSA DEVLIN PA-C [facility] [address] [address] 04/03/2025 15:19:59 04/03/2025 16:18:44 Mixed conductive and sensorineural hearing loss, bilateral 178692869 H90.6 Audiologic al evaluation results: Right ear: Normal sloping to severe mixed hearing loss with excellent word recognitio n. Left ear: Mild sloping to severe mixed hearing loss with excellent word recognitio n. Tympanomet ry: Right Ear:Type B with large volume? Left Ear:Type B Health Concerns Section Related Observation LastModified by Organization Detai ls LastModified Time None Recorded Concern Status LastModified by Organization Details LastModified Time None Recorded Advance Directives Directive None Recorded Payers Insurance Date Sequence Insurance Name Policy Number Policy Guzman Covered Member ID Guzman Member ID Guarantor Name 04/04/2025 1 [employer] ([facility] [place]) [id number] 1 Chiara Ambrocio [id number] Chiara Ambrocio Notes Date Note Type Note Provider Name and Address Organization Details Recorded Time 01/29/2025 text/html 34-year-old dawn patel with eustachian tube dysfunction presents for evaluation of the ears. She contracted viral upper respiratory infection 5 weeks ago with subsequent bilateral ear infections. She was prescribed topical Ciprodex and oral Augmentin, cefdinir, and doxycycline. Patient reports minimal improvement in her ear pain. She continues to experience ear drainage and her hearing feels down. DEVAUGHN CAM MD [address] [place] [address], [address], [facility] - [facility] 01/30/2025 08:38:14 02/04/2025 text/html 34-year-old dawn patel with right myringotomy tube presents for reevaluation of bilateral otitis externa. Patient reports she developed ear pain in both ears since using topical clotrimazole last week. She trialed topical Ciprodex and oral Augmentin, cefdinir, and doxycycline through outside practice prior. Hearing is at baseline. Some ear itchiness. No drainage. ELSIE MENENDEZ MD [address], [place], [address], [facility] - [facility] 02/04/2025 12:47:18 02/13/2025 text/html 34-year-old fema le with amplification and right myringotomy tube presents for reevaluation of bilateral otitis externa. Culture of external auditory canals was unremarkable for bacteria or fungus, although it was collected after she started clotrimazole. Patient reports right-sided ear pain resolved. Today she has mild left-sided ear pain and pressure. LCEMENT ESCALONA MD [address] [facility], [place], [address], [facility] - [facility] 02/14/2025 09:32:55 02/27/2025 text/html 34-year-old fema le with amplification and right myringotomy tube presents for reevaluation of left otitis externa. Patient reports ear pain and ear drainage resolved. Occasional temporomandibular joint pain, improved with ibuprofen. She feels her hearing is stable. She has not been wearing left amplification. CLEMENT ESCALONA MD [address] [facility],[address], [place], [address], [facility] 02/27/2025 17:05:10 04/03/2025 text/html 34-year-old femtricia le with history of hearing loss and ETD presents for reevaluation. She has a right sided T-tube and history of left TM perforation with spontaneous closure. She has bilateral hearing aids from [employer]. Recently was treated for fungal OE which took 2 rounds of Lotrisone to clear. No longer having infection but has noticed decrease in hearing on the left side since treatment. ELSIE MENENDEZ MD [address], [place], [address], [facility] 04/03/2025 16:51:54 OBGyn Episode No OBEpisode recorded.
== END 2025-04-29 15:38 | disposition home or self-care (01) ==
LOC: HO.HAP 15:37
PROVIDERS: Visit Provider Internal Medicine
DX: Z13.89 Encounter for screening for other disorder (principal)

== ENCOUNTER 2025-08-03 15:09 | Outpatient (REF) | payer SELFPAY ==
--- OUTSIDE RECORDS SUMMARY | 2025-08-03 17:38 | XMS_ITS | Encounter Summary ---
Demographics Address [address] [place] [address] Home Phone Mobile Phone Email Address Preferred Language Hong Konger
== END 2025-08-03 15:10 | disposition home or self-care (01) ==
LOC: HO.HAP 15:09
DX: Z13.89 Encounter for screening for other disorder (principal)

== ENCOUNTER 2025-08-04 15:34 | Outpatient (REF) | payer SELFPAY ==
--- OUTSIDE RECORDS SUMMARY | 2025-08-04 18:20 | XMS_ITS | Encounter Summary ---
Author Organization [facility] Address [address] [place] [address] [place] [phone] Phone Care Team Providers Care Drilling Assistant Name Role Phone Shae Barrientos MD Primary Care Provi marvin Tammy Diaz MD Primary Care Provider [phone]- [phone] Encounter Details Date Type Department Care Team (Late st Contact Info) Description 11/01/2017 Transcribe Orders [facility] [address] [place] [address] Shae Barrientos MD [address] [place], [place] [id number] [email or web address] Other pulmonary embolism without acute cor pulmonale, unspecified chronicity (Primary Dx) Social History Tobacco Use Types Packs/Day Years Used Date Smoking Tobacco: Never Comments Unknown Sex and Gender Information Value Date Recorded Sex Assigned at Female 02/14/2023 3:45 AM EDT Legal Sex Female 7:44 PM EST Gender Identity Female 02/14/2023 3:45 AM EDT Sexual Orientation Not on file documented as of this encounter Plan of Treatment Not on file documented as of this encounter Procedures Procedure Name Priority Date/Time Associated Diagnosis Comments ANTI-CARDIOLIPIN ANTIBODIES Routine 11/01/2017 11:29 AM EST Other pulmonary embolism without acute cor pulmonale, unspecified chronicity documented in this encounter Results * Anti-cardiolipin antibodies (11/01/2017 11:29 AM EST) PHOSPHOLIPID IGM,S <9.4 <15.0 (Negative) MPL [facility] DPT OF LAB MED AND PAT+ PHOSPHOLIPID IGG, S <9.4 <15.0 (Negative) GPL [facility] DPT OF LAB MED AND PAT+ Blood 11/01/2017 11:2 9 AM EST 11/01/2017 11:32 AM EST us Shae Barrientos MD LAB BLOOD ORDERABLE S Final Result [facility] DPT OF LAB MED AND PAT+ [address] [place] [address] documented in this encounter Visit Diagnoses Diagnosis Other pulmonary embolism without acute cor pulmonale, unspecified chronicity- Primary documented in this encounter Care Teams Drilling Assistant Relationship Specialty Start Date End Date Shae Barrientos MD [email or web address] PCP - General Internal Medicine 11/01/1708/31 Tammy Diaz MD [address] [place] [address] [email or web address] PCP - General Internal Medicine 04/22/20 documented as of this encounter Additional Source Comments The information contained in this document represents components of the legal health record. It is not the complete legal health record.[facility]
--- OUTSIDE RECORDS SUMMARY | 2025-08-04 18:20 | XMS_ITS | Encounter Summary ---
Author Organization [facility] Address [address] [place] [address] [place] [address] Phone Care Team Providers Care Fruit Packer Name Role Phone Tammy Diaz MD Primary Care Provider [phone]- [phone] Encounter Details Date Type Department Care Team (Latest Contact Info) Description 06/16/2025 Transcribe Orders [facility] [address] [address] Chloe Ramirez NP [address] [place] [address] Gastroesophageal reflux disease without esophagitis (Primary Dx); Nausea; Abdominal pain, epigastric Social History Tobacco Use Types Packs/Day Years Used Date Smoking Tobacco: Never Education Answer Date Recorded Are you interested in more education? Not on yoli e 03/08/2023 Are you concerned about learning? Not on file 03/08/2023 No 03/08/2023 No 03/08/2023 Digital Access Answer Date Recorded No 04/06/2023 No 04/06/2023 No 04/06/2023 Reliable internet access at home? Not on file 04/06/2023 Device with a working camera? Not on file Intimate Partner Violence Answer Date R ecorded Are you denied basic needs s uch as food, clothing, or medical care? No 02/14/2023 In the past 12 months have y ou been in a relationship with a person who hurts, threatens, or tries to control you? No 02/14/2023 Are you denied basic needs s uch as food, clothing, or medical care? No 02/14/2023 In the past 12 months have y ou been in a relationship with a person who hurts, threatens, or tries to control you? No 02/14/2023 Comments Unknown Sex and Gender Information Value Date Recorded Sex Assigned at Female 02/14/2023 3:45 AM EDT Legal Sex Female 7:44 PM EST Gender Identity Female 02/14/2023 3:45 AM EDT Sexual Orientation Not on file documented as of this encounter Plan of Treatment Not on file documented as of this encounter Results * Vitamin B12 (06/16/2025 10:22 AM EDT) VITAMIN B12 814 232 - 1,245 pg/mL [facility] Blood 06/16/2025 10:2 2 AM EDT 06/16/2025 10:28 AM EDT Chloe Ramirez WHEEL AND AXLE INSPECTOR LAB BLOOD ORDERABLES Brigitte l Result Performing Organization Address City/[facility]/ZIP Co de Phone Number [address] [address] * Magnesium (06/16/2025 10:22 AM EDT) MAGNESIUM 2.2 1.6 - 2.6 mg/dL [facility] Blood 06/16/2025 10:2 2 AM EDT 06/16/2025 10:28 AM EDT Chloe Ramirez WHEEL AND AXLE INSPECTOR LAB BLOOD ORDERABLES Brigitte l Result [address] [address] * Iron and iron binding capacity (06/16/2025 10:22 AM EDT) IRON 97 30 - 160 ug/dL [facility] IRON BINDING CAPACITY 386 228 - 428 ug/dL [facility] TRANSFERRIN SATURAT. 25 15 - 50 % [facility] Blood 06/16/2025 10:2 2 AM EDT 06/16/2025 10:28 AM EDT Chloe Ramirez WHEEL AND AXLE INSPECTOR LAB BLOOD ORDERABLES Brigitte l Result Performing Organization Address [facility]/ZIP Co de Phone Number [address] [address] * Immunoglobulin A (06/16/2025 10:22 AM EDT) IgA 73 70 - 400 mg/dL [facility] Blood 06/16/2025 10:2 2 AM EDT 06/16/2025 10:28 AM EDT Chloe Ramirez WHEEL AND AXLE INSPECTOR LAB BLOOD ORDERABLES Brigitte l Result Performing Organization Address [facility] Co de Phone Number [address] [address] * Tissue transglutaminase IgA (06/16/2025 10:22 AM EDT) TTG IGA ANTIBODY <1.2 <4.0 (Negative) U/mL [facility] Blood 06/16/2025 10:2 2 AM EDT 06/16/2025 10:27 AM EDT Chloe Ramirez NP LAB BLOOD ORDERABLES Brigitte l Result Performing Organization Address [facility]/ZIP Co de Phone Number [facility] [address] [place] [address] documented in this encounter Visit Diagnoses Diagnosis Gastroesophageal reflux disease without esophagitis- Primary Esophageal reflux Nausea Nausea alone Abdominal pain, epigastric documented in this encounter Care Teams Fruit Packer Relationship Specialty Start Date End Date Tammy Diaz MD [address] [place] [address] PCP - General Internal Medicine 04/22/20 documented as of this encounter Additional Source Comments The information contained in this document represents components of the legal health record. It is not the complete legal health record.[facility]
--- OUTSIDE RECORDS SUMMARY | 2025-08-04 18:20 | XMS_ITS | Encounter Summary ---
Author Organization [facility] Address [address] [place] [address] [place] [address] Phone Care Team Providers Care Rug Underlay Machine Operator Name Role Phone Tammy Diaz MD Primary Care Provider [phone]- [phone] Encounter Details Date Type Department Care Team (Late st Contact Info) Description 03/12/2024 Procedure Pass [facility], Ct Scan - [facility] [address] [place] [address] Social History Tobacco Use Types Packs/Day Years [...] on file documented as of this encounter Visit Diagnoses Not on filedocumented in this encounter Care Teams Rug Underlay Machine Operator Relationship Specialty Start Date End Date Tammy Diaz MD [address] [place] [address] [email or web address] PCP - General Internal Medicine 04/22/20 documented as of this encounter Additional Source Comments The information contained in this document represents components of the legal health record. It is not the complete legal health record.[facility]
--- OUTSIDE RECORDS SUMMARY | 2025-08-04 18:20 | XMS_ITS | Encounter Summary ---
Author Organization [facility] Address [facility] [employer] [facility] [address] [place] [address] Phone Care Team Providers Care Ordnance Mechanic Name Role Phone Tammy Diaz MD Primary Care Provider Encounter Details Date Type Department Care Team (Latest Contact Info) Description 03/11/2024 Transcribe Orders [facility] [address] [place], [place] [id number] Anamika Soni PA [address] [place] [address] [email or web address] Routine general medical examination at a health care facility (Primary Dx); Unusually frequent menses Social History Tobacco Use Types Packs/Day Years [...] documented as of this encounter Visit Diagnoses Diagnosis Routine general medical examination at a health care facility- Primary Unusually frequent menses Excessive or frequent menstruation documented in this encounter Care Teams Ordnance Mechanic Relationship Specialty Start Date End Date Tammy Diaz MD [address] [place] [address] [email or web address] PCP - General Internal Medicine 04/22/20 documented as of this encounter Additional Source Comments The information contained in this document represents components of the legal health record. It is not the complete legal health record.[facility]
--- OUTSIDE RECORDS SUMMARY | 2025-08-04 18:21 | XMS_ITS | Encounter Summary ---
Author Organization [facility] Address [address] [place] [address] Phone Care Team Providers Care Coding Compliance Manager Name Role Phone Tammy Diaz MD Primary Care Provider [phone]- [phone] Reason for Referral * MRI/CAT Scan - Closed Specialty Diagnoses / Procedures Referred By Contac t Referred To Contact Radiology Diagnoses Abdominal pain, unspecified abdominal location Diverticulitis Procedures CT Abdomen/Pelvis CHG CT SCAN,ABDOMENT AND PELVIS,W CONTRAST Jackeline Boykin PA [address] [place] [address] Phone: tel: fax: [email or web address] Referral ID Status Reason Start Date Expiration Date Visits Re quested Visits Authorized [id number] Closed 03/12/2024 05/11/2024 1 1 Encounter Details Date Type Department Care Team (Late st Contact Info) Description 03/12/2024 Transcribe Orders Virtual Department [address] [place] [address] Jackeline Boykin PA [address] [place] [address] [email or web address] Abdominal pain, unspecified abdominal location (Primary Dx); Diverticulitis Social History Tobacco Use Types Packs/Day Years [...] documented as of this encounter Results * CT ABDOMEN/PELVIS WITH CONTRAST (03/25/2024 4:16 PM EDT) Anatomical Region Laterality Modality Abdomen, Pelvis Computed Tomogra phy 03/25/2024 4:32 PM EDT Impressions 03/25/2024 4:45 PM EDT 1. No acute abnormality demonstrated to explain etiology of patient's symptoms. 2. Redemonstration of sigmoid diverticulosis without CT evidence of active inflammation. Narrative 03/25/2024 4:[address] ABDOMEN/PELVIS WITH CONTRAST Referring clinician's provided indication for this examination in Epic: Outside Radiology Order; abdomen pain TECHNIQUE: Multidetector-row CT of the abdomen and pelvis was performed after administration of intravenous contrast using tailored dose modulation techniques. Images were reconstructed in the axial, coronal, and sagittal planes. COMPARISON: CT abdomen pelvis 02/14/2023. FINDINGS: Lower Chest: No consolidation or pleural effusions. Liver: No focal lesions. Biliary: No biliary ductal dilatation. Spleen: No splenomegaly or focal lesions. Pancreas: No masses or ductal dilatation. Adrenal Glands: No nodules. Kidneys/Ureters: No solid masses, stones, or hydronephrosis. Bowel: Colonic diverticulosis without CT evidence of active inflammation. Normal appendix. No distention or wall thickening. Peritoneum/Retroperitoneum: No masses, pneumoperitoneum, or fluid. Lymph Nodes: Similar minimally prominent right ileocolic lymph nodes again measuring up to 7 mm in short axis. No lymphadenopathy. Pelvic Organs/Bladder: The urinary bladder is physiologically distended. No mural thickening. Vessels: No abdominal aortic aneurysm. 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 Procedure Note Marimar Tobar MD - 03/25/2024 CT ABDOMEN/PELVIS WITH CONTRAST Referring clinician's provided indication for this examination in Epic:Outside Radiology Order; abdomen pain TECHNIQUE: Multidetector-row CT of the abdomen and pelvis was performedafter administration of intravenous contrast using tailored dosemodulation techniques. Images were reconstructed in the axial, coronal,and sagittal planes. COMPARISON: CT abdomen pelvis 02/14/2023. FINDINGS: Lower Chest: No consolidation or pleural effusions. Liver: No focal lesions. Biliary: No biliary ductal dilatation. Spleen: No splenomegaly or focal lesions. Pancreas: No masses or ductal dilatation. Adrenal Glands: No nodules. Kidneys/Ureters: No solid masses, stones, or hydronephrosis. Bowel: Colonic diverticulosis without CT evidence of active inflammation.Normal appendix. No distention or wall thickening. Peritoneum/Retroperitoneum: No masses, pneumoperitoneum, or fluid. Lymph Nodes: Similar minimally prominent right ileocolic lymph nodes againmeasuring up to 7 mm in short axis. No lymphadenopathy. Pelvic Organs/Bladder: The urinary bladder is physiologically distended.No mural thickening. Vessels: No abdominal aortic aneurysm. Bones/Soft Tissues: Redemonstration of bilateral pars defects at L5-I5kqsta with minimal spondylolisthesis. IMPRESSION: 1. No acute abnormality demonstrated to explain etiology of patient'ssymptoms. 2. Redemonstration of sigmoid diverticulosis without CT evidence ofactive inflammation. Jackeline PELAEZ IMG CT ABD/PELVIS Final Result documented in this encounter Visit Diagnoses Diagnosis Abdominal pain, unspecified abdominal location- Primary Diverticulitis Diverticulitis of colon (without mention of hemorrhage) Abdominal pain, unspecified abdominal location Diverticulitis Diverticulitis of colon (without mention of hemorrhage) documented in this encounter Care Teams Coding Compliance Manager Relationship Specialty Start Date End Date Tammy Diaz MD [address] [place] [address] [email or web address] PCP - General Internal Medicine 04/22/20 documented as of this encounter Additional Source Comments The information contained in this document represents components of the legal health record. It is not the complete legal health record.[facility]
--- OUTSIDE RECORDS SUMMARY | 2025-08-04 18:21 | XMS_ITS | Encounter Summary ---
Author Organization [facility] Address [address] [place] [address] Phone Care Team Providers Care Professional Skateboarder Name Role Phone Tammy Diaz MD Primary Care Provider [phone]- [phone] Encounter Details Date Type Department Care Team (Late st Contact Info) Description 02/14/2023 Procedure Pass [facility], Ct Scan - [facility] [address] [place] [address] Social History Tobacco Use Types Packs/Day Years Used Date Smoking Tobacco: Never Intimate Partner Violence Answer Date R ecorded [...] on file documented as of this encounter Functional Status * Calculated C-SSRS Risk Score (Lifetime/Recent) Answer Date of Assessment Author No Risk Indicated 02/14/2023 3:45 AM EDT Petey Tobar RN * [place] Suicide Severity Rating Scale (Screener/Recent Self-Report) Question Answer Date of Assessment Author 1. Wish to be (Past 1 Month) No 023 3:45 AM EDT Terrance Tobar RN 2. Non-Specific Active Suici karen Thoughts (Past 1 Month) No 02/14/2023 3:45 AM EDT Terrance Tobar RN 6. Suicidal Behavior (Lifetime) No 3 3:45 AM EDT Terrance Tobar RN documented as of this encounter Plan of Treatment Not on file documented as of this encounter Visit Diagnoses Not on filedocumented in this encounter Care Teams Professional Skateboarder Relationship Specialty Start Date End Date Tammy Diaz MD [address] [place] [address] [email or web address] PCP - General Internal Medicine 04/22/20 documented as of this encounter Additional Source Comments The information contained in this document represents components of the legal health record. It is not the complete legal health record.[facility]
--- OUTSIDE RECORDS SUMMARY | 2025-08-04 18:21 | XMS_ITS | Encounter Summary ---
Author Organization [facility] Address [facility] [employer] [facility] [address] [place] [address] Phone Care Team Providers Care It Administrator Name Role Phone Tammy Diaz MD Primary Care Provider [phone]- [phone] Encounter Details Date Type Department Care Team (Latest Contact Info) Description 04/05/2023 Transcribe Orders [facility] [address] [place] [address] Anamika Soni PA [address] [place], [place] [phone] [email or web address] Abdominal pain, unspecified abdominal location (Primary Dx) Social History Tobacco Use Types [...] documented as of this encounter Results * (ABNORMAL) CBC and differential (04/05/2023 3:06 PM EDT) WBC 11.37(H) 4.00 - 11.00 K/uL [facility] RBC 4.78 3.72 - 5.30 M/uL [facility] HGB 14.3 10.6 - 15.5 g/dL [facility] HCT 42.1 32.0 - 45.0 % [facility] PLT 249 140 - 430 K/uL [facility] MCV 88.1 78.0 - 97.0 fL [facility] MCH 29.9 25.0 - 33.0 pg [facility] MCHC 34.0 32.0 - 36.0 g/dL [facility] RDW 13.3 11.0 - 16.0 % [facility] MPV 11.5 8.4 - 12.8 fl [facility] DIFF [employer] [facility] NEUTS 66.8 43.0 - 75.0 % [facility] LYMPHS 22.9 18.2 - 47.4 % [facility] MONOS 6.2 4.00 - 11.00 % [facility] EOS 3.2 0.0 - 8.0 % [facility] BASOS 0.6 0.0 - 2.0 % [facility] Granulocytes, immature (%) 0.3 0.0 - 0.9 % [facility] ABSOLUTE NEUTS 7.60 1.80 - 7.70 K/uL [facility] ABSOLUTE LYMPHS 2.60 1.00 - 3.10 K/uL [facility] ABSOLUTE MONOS 0.71 0.20 - 0.80 K/uL [facility] ABSOLUTE EOS 0.36 0.00 - 0.80 K/uL [facility] ABSOLUTE BASOS 0.07 0.00 - 0.09 K/uL [facility] Granulocytes, immature 0.03 0.00 - 0.05 K/uL [facility] Blood 04/05/2023 3:06 PM EDT 04/05/2023 5:51 PM EDT us Anamika PELAEZ LAB BLOOD ORDERABLES Final Resu lt [facility] [address] [place], [place] [phone] * Comprehensive metabolic panel (04/05/2023 3:06 PM EDT) SODIUM 139 133 - 146 mmol/L [facility] POTASSIUM 3.9 3.3 - 5.1 mmol/L [facility] CHLORIDE 102 96 - 108 mmol/L [facility] CO2 23 21 - 35 mmol/L [facility] BUN 13 6 - 19 mg/dL [facility] CREATININE 0.70 0.5 - 1.5 mg/dL [facility] GLUCOSE 79 70 - 99 mg/dL [facility] ALBUMIN 4.4 3.9 - 4.8 g/dL [facility] TOTAL PROTEIN 6.9 6.5 - 8.0 g/dL [facility] CALCIUM 9.7 8.4 - 10.3 mg/dL [facility] ALKALINE PHOSPHATASE 64 39 - 117 U/L [facility] TOTAL BILIRUBIN 0.2 0.0 - 1.2 mg/dL [facility] AST 17 0 - 37 U/L [facility] ALT 18 0 - 40 U/L [facility] GLOBULIN 2.5 1 - 4.8 g/dL [facility] EGFR 119 >59 mL/min/1.7 3m2 [facility] Comment:Estimated glomerular filtration rate calculated using the CKD-EPI refit equation. ANION GAP 18 10 - 20 mmol/L [facility] Blood 04/05/2023 3:06 PM EDT 04/05/2023 5:51 PM EDT us Anamika PELAEZ LAB BLOOD ORDERABLES Final Resu lt [address] [address] documented in this encounter Visit Diagnoses Diagnosis Abdominal pain, unspecified abdominal location- Primary documented in this encounter Care Teams It Administrator Relationship Specialty Start Date End Date Tammy Diaz MD [address] [place] [address] [email or web address] PCP - General Internal Medicine 04/22/20 documented as of this encounter Additional Source Comments The information contained in this document represents components of the legal health record. It is not the complete legal health record.[facility]
--- OUTSIDE RECORDS SUMMARY | 2025-08-04 18:21 | XMS_ITS | Clinical Summary ---
Author Organization [facility] Address [address] [place] [phone] Phone Care Team Providers Care Sports Statistician Name Role Phone Tammy Diaz MD Primary Care Provider Allergies Active Allergy Reactions Criticality Noted Date Comments Azithromycin Hives 11/29/2012 Medications traZODone (DESYREL) 50 MG tablet 1 tablet at bedtime as needed Orally Once a day Active cetirizine (ZYRTEC) 10 mg Cap 1 capsule as needed Orally Once a day Active aspirin (ADULT LOW DOSE ASPIRIN) 81 MG EC tablet Take 81 mg by mouth daily. Active amoxicillin-cla vulanate (AUGMENTIN) 875-125 mg per tablet Take 1 tablet (875 mg of amoxicillin total) by mouth 2 (two) times a day. 14 tablet 3 Active Encounters Date Type Department Care Team Description 06/16/2025 10:22 AM EDT - 06/16/2025 11:59 PM EDT Hospital Encounter [facility] [address] [address] Chloe Ramirez NP Discharge Disposition: Home or Self Care 06/16/2025 Transcribe Orders [facility] [address] [address] Chloe Ramirez NP Gastroesophageal reflux disease without esophagitis (Primary Dx); Nausea; Abdominal pain, epigastric from Last 3 Months Family History Medical History Relation Comments Cancer Maternal Grandfather 2 Relation Status Comments Maternal Grandfather 1 Maternal Grandfather 2 Social History Tobacco Use Types Packs/Day Years [...] AM EDT Sexual Orientation Not on file Last Filed Vital Signs Vital Sign Reading Time Taken Comments Blood Pressure 107/68 02/14/2023 6:00 AM EDT Pulse 104 02/14/2023 6:16 AM EDT Temperature 36.7 C (98.1 F) 02/14/2023 6:16 AM EDT Respiratory Rate 18 02/14/2023 3:42 AM EDT Oxygen Saturation 98% 02/14/2023 3:42 AM EDT Inhaled Oxygen Concentration - - Weight 74.7 kg (164 lb 9.6 oz) 04/28/2016 9:05 A M EDT Height 155.4 cm (5' 1.2 ) 04/28/2016 9:05 AM EDT Body Mass Index 30.9 04/28/2016 9:05 AM EDT Plan of Treatment Not on file Medical Devices Not on file Procedures Procedure Name Priority Date/Time Associated Diagnosis Comments TISSUE TRANSGLUTAMINASE IGA Routine 06/16/2025 10:22 AM EDT Gastroesophageal reflux disease without esophagitis Nausea Abdominal pain, epigastric IMMUNOGLOBULIN A Routine 06/16/2025 10:2 2 AM EDT Gastroesophageal reflux disease without esophagitis Nausea Abdominal pain, epigastric IRON AND IRON BINDING CAPACITY Routine 06/16/2025 10:22 AM EDT Gastroesophageal reflux disease without esophagitis Nausea Abdominal pain, epigastric MAGNESIUM Routine 06/16/2025 10:22 AM EDT Gastroesophageal reflux disease without esophagitis Nausea Abdominal pain, epigastric VITAMIN B12 Routine 06/16/2025 10:22 AM EDT Gastroesophageal reflux disease without esophagitis Nausea Abdominal pain, epigastric from Last 3 Months Results * Iron and iron binding capacity (06/16/2025 10:22 AM EDT) IRON 97 30 - 160 ug/dL [facility] IRON BINDING CAPACITY 386 228 - 428 ug/dL [facility] TRANSFERRIN SATURAT. 25 15 - 50 % [facility] Blood 06/16/2025 10:2 2 AM EDT 06/16/2025 10:28 AM EDT Chloe Ramirez NP LAB BLOOD ORDERABLES Brigitte l Result [address] [address] * Tissue transglutaminase IgA (06/16/2025 10:22 AM EDT) TTG IGA ANTIBODY <1.2 <4.0 (Negative) U/mL [facility] Blood 06/16/2025 10:2 2 AM EDT 06/16/2025 10:27 AM EDT Chloe Irma W[place]main [facility] LAB BLOOD ORDERABLES Brigitte l Result [facility] [address] [place] [address] * Magnesium (06/16/2025 10:22 AM EDT) MAGNESIUM 2.2 1.6 - 2.6 mg/dL [facility] Blood 06/16/2025 10:2 2 AM EDT 06/16/2025 10:28 AM EDT us Chloe Ramirez NP LAB BLOOD ORDERABLES Brigitte l Result Performing Organization Address City/[facility]/ZIP Co de Phone Number [address] [phone] * Immunoglobulin A (06/16/2025 10:22 AM EDT) IgA 73 70 - 400 mg/dL [facility] Blood 06/16/2025 10:2 2 AM EDT 06/16/2025 10:28 AM EDT Chloe Ramirez NP LAB BLOOD ORDERABLES Brigitte l Result Performing Organization Address City/[facility]/ZIP Co de Phone Number [address] [address] * Vitamin B12 (06/16/2025 10:22 AM EDT) VITAMIN B12 814 232 - 1,245 pg/mL [facility] Blood 06/16/2025 10:2 2 AM EDT 06/16/2025 10:28 AM EDT Chloe Ramirez [facility] LAB BLOOD ORDERABLES Brigitte l Result [address] [address] from Last 3 Months Insurance HMO O HMO HMO O O O HMO HMO Care Teams Sports Statistician Relationship Specialty Start Date End Date Tammy Diaz MD [address] [place] [phone] [email or web address] PCP - General Internal Medicine 04/22/20 Additional Source Comments The information contained in this document represents components of the legal health record. It is not the complete legal health record.[facility]
--- OUTSIDE RECORDS SUMMARY | 2025-08-04 18:21 | XMS_ITS | Encounter Summary ---
Author Organization [facility] Address [address] [place] [phone] Phone Care Team Providers Care Printing Grey Cloth Tender Name Role Phone Tammy Diaz MD Primary Care Provider [phone] Encounter Details Date Type Department Care Team (Late st Contact Info) Description 03/11/2024 Transcribe Orders [facility] [address] [place] [id number] Jackeline Boykin PA [address] [place] [address] [email or web address] Constipation, unspecified constipation type (Primary Dx); Diverticulitis of large intestine, unspecified bleeding status, unspecified complication status; Abdominal pain, right upper quadrant Social History Tobacco Use Types Packs/Day Years [...] documented as of this encounter Results * GGT (Gamma glutamyl transferase) (03/11/2024 3:46 PM EDT) GGT 17 7 - 33 U/L [facility] Blood 03/11/2024 3:46 PM EDT 03/11/2024 4:15 PM EDT Jackeline PELAEZ LAB BLOOD ORDERABLES Fin al Result Performing Organization Address City/[facility]/ZIP Co de Phone Number [address] [address] * C-Reactive Protein (03/11/2024 3:46 PM EDT) C REACTIVE PROTEIN <3.0 0.0 - 4.0 mg/L [facility] Blood 03/11/2024 3:46 PM EDT 03/11/2024 4:15 PM EDT Jackeline PELAEZ LAB BLOOD ORDERABLES Fin al Result Performing Organization Address City/[facility]/ZIP Co de Phone Number [address] [address] * Comprehensive metabolic panel (03/11/2024 3:46 PM EDT) SODIUM 138 133 - 146 mmol/L [facility] POTASSIUM 4.1 3.3 - 5.1 mmol/L [facility] CHLORIDE 104 96 - 108 mmol/L [facility] CO2 22 21 - 35 mmol/L [facility] BUN 8 6 - 19 mg/dL [facility] CREATININE 0.70 0.5 - 1.5 mg/dL [facility] GLUCOSE 97 70 - 99 mg/dL [facility] ALBUMIN 4.3 3.9 - 4.8 g/dL [facility] TOTAL PROTEIN 6.6 6.5 - 8.0 g/dL [facility] CALCIUM 9.0 8.4 - 10.3 mg/dL [facility] ALKALINE PHOSPHATASE 63 39 - 117 U/L [facility] TOTAL BILIRUBIN <0.2 0.0 - 1.2 mg/dL [facility] AST 25 0 - 37 U/L [facility] ALT 18 0 - 40 U/L [facility] GLOBULIN 2.3 1 - 4.8 g/dL [facility] EGFR 118 >59 mL/min/1.7 3m2 [facility] Comment:Estimated glomerular filtration rate calculated using the CKD-EPI refit equation. ANION GAP 16 10 - 20 mmol/L [facility] Blood 03/11/2024 3:46 PM EDT 03/11/2024 4:15 PM EDT Jackeline PELAEZ LAB BLOOD ORDERABLES Fin al Result Performing Organization Address City/State/[facility] Co de Phone Number [address] [phone] * CBC (03/11/2024 3:46 PM EDT) WBC 10.39 4.00 - 11.00 K/uL [facility] RBC 4.61 3.72 - 5.30 M/uL [facility] HGB 13.3 10.6 - 15.5 g/dL [facility] HCT 40.1 32.0 - 45.0 % [facility] PLT 229 140 - 430 K/uL [facility] MCV 87.0 78.0 - 97.0 fL [facility] MCH 28.9 25.0 - 33.0 pg [facility] MCHC 33.2 32.0 - 36.0 g/dL [facility] RDW 13.4 11.0 - 16.0 % [facility] MPV 11.5 8.4 - 12.8 fl [facility] Blood 03/11/2024 3:46 PM EDT 03/11/2024 4:15 PM EDT Jackeline PELAEZ LAB BLOOD ORDERABLES Fin al Result Performing Organization Address City/[facility]/ZIP Co de Phone Number [address] [address] * Lipase (03/11/2024 3:46 PM EDT) LIPASE 35 16 - 63 U/L [facility] Blood 03/11/2024 3:46 PM EDT 03/11/2024 4:15 PM EDT Jackeline PELAEZ LAB BLOOD ORDERABLES Fin al Result Performing Organization Address [facility] Co de Phone Number [address] [address] * Amylase (03/11/2024 3:46 PM EDT) AMYLASE 46 28 - 100 U/L [facility] Blood 03/11/2024 3:46 PM EDT 03/11/2024 4:15 PM EDT Jackeline PELAEZ LAB BLOOD ORDERABLES Fin al Result Performing Organization Address [facility] Co de Phone Number [address] [phone] documented in this encounter Visit Diagnoses Diagnosis Constipation, unspecified constipation type- Primary Diverticulitis of large intestine, unspecified bleeding status, unspecified complication status Abdominal pain, right upper quadrant documented in this encounter Care Teams Printing Grey Cloth Tender Relationship Specialty Start Date End Date Tammy Diaz MD [address] [place] [phone] [email or web address] PCP - General Internal Medicine 04/22/20 documented as of this encounter Additional Source Comments The information contained in this document represents components of the legal health record. It is not the complete legal health record.[facility]
== END 2025-08-04 15:35 | disposition home or self-care (01) ==
LOC: HO.HAP 15:34
DX: Z46.1 Encounter for fitting and adjustment of hearing aid (principal); H90.3 Sensorineural hearing loss, bilateral
CPT/HCPCS: V5299